=== PATIENT | female | born 1985 | race African-American/Black ===

== ENCOUNTER 2016-11-08 19:22 | Emergency (ER) | payer OTHER ==
[~2016-11-08] VITALS: Ht 160 cm; Wt 58.0 kg
[2016-11-08 19:23] VITALS: BP 128/65; PULSE 82; RESP 16; TEMP 99.2; O2SAT 100
--- NOTE | 2016-11-08 19:30 | PD ---
Physical Exam Date Seen by Provider: Nov 08, 2016 Time Seen by Provider: 19:29 Narrative 31 year old female presents to the emergency department for evaluation of a headache for 3 days, not responding to OTC medications. She reports feeling dizzy as well. No history of migraines. Patient awaiting bed placement. Data Data Last Documented VS Vital Signs Date Time Temp Pulse Resp B/P Pulse Ox O2 Delivery O2 Flow Rate FiO2 11/08/16 19:23 99.2 82 16 128/65 100 Room Air MDM Supervised Visit with BERTA: No Scripts No Active Prescriptions or Reported Meds Fatoumata Basurto Nov 08, 2016 19:29
[2016-11-08] MEDS ORDERED: SODIUM CHLOR 0.9% 1000 ML INJ 1,000 ML IV ONE (20:14)
--- NOTE | 2016-11-08 20:14 | PD ---
HPI Chief Complaint: Headache Time Seen by Provider: 20:14 Travel History International Travel<30 days: No Contact w/Intl Traveler<30days: No Traveled to known affect area: No History of Present Illness HPI 31-year-old female presents emergency Department with complaint of a headache 3 days. She does not have history of headaches. Location is frontal and posterior to the back of the neck. Rates her headache 10/10. As an aching pain. Increase and decrease in intensity but has not completely subsided in the last 3 days. Reports nausea without vomiting. Denies fever. Denies focal deficits or weakness. Denies change in vision. Denies photophobia or phonophobia. Reports dizziness that is worse with walking and standing. Denies illicit drug use or EtOH. Has been taking ibuprofen and Aleve with no relief of headache. Family history of headaches. Hasn't established primary care provider but does not know his name. Allergies to crabs. Denies significant past medical history. No other modifying factors or associated signs and symptoms. PFSH Past Medical History Anemia: Yes Diminished Hearing: No Immunizations Current: No Tetanus Vaccination: < 5 Years Influenza Vaccination: No ?: Not LMP: 11/04/16 : 3 Para: 3 Ectopic : No Ovarian Cysts: Yes Tubal Ligation: Yes Past Surgical History Section: Yes (x3) Gynecologic Surgery: Yes (CYST REMOVAL) Hysterectomy: No Social History Alcohol Use: No (occassionally ) Tobacco Use: No Substance Use: No Allergies-Medications (Allergen,Severity, Reaction): Coded Allergies: Crab (Verified Allergy, Severe, 11/08/16) Reported Meds & Prescriptions Reported Meds & Active Scripts Active No Active Prescriptions or Reported Medications Review of Systems Except as stated in HPI: all other systems reviewed are Neg Physical Exam Narrative GENERAL: Well-nourished, well-developed patient, in no acute distress; sitting in a well lit room SKIN: Warm and dry. HEAD: Atraumatic. Normocephalic. No facial droop noted. Tongue midline. EYES: Pupils equal and round at 3 mm with brisk reaction. No scleral icterus. No injection or drainage. PERRLA. EOMI. ENT: Mucosa pink and moist. Airway patent. NECK: Trachea midline. No lymphadenopathy. CARDIOVASCULAR: Regular rate and rhythm. No murmur appreciated. RESPIRATORY: No accessory muscle use. Clear to auscultation. Breath sounds equal bilaterally. GASTROINTESTINAL: Abdomen soft, non-tender, nondistended. Hepatic and splenic margins not palpable. Bowel sounds are active 4 quadrants. MUSCULOSKELETAL: No obvious deformities. No clubbing. No cyanosis. No edema. NEUROLOGICAL: Awake and alert. Oriented 3. No obvious cranial nerve deficits. Motor grossly within normal limits. Normal speech. No ataxia. No mid -line drift. Moves all extremities. 5/5 strength to all extremities. PSYCHIATRIC: Appropriate mood and affect; insight and judgment normal. Data Data Last Documented VS Vital Signs Date Time Temp Pulse Resp B/P Pulse Ox O2 Delivery O2 Flow Rate FiO2 11/08/16 22:48 98.5 78 16 131/55 99 11/08/16 20:31 Room Air Orders Complete Blood Count With Diff (11/08/16 20:14) Basic Metabolic Panel (Bmp) (11/08/16 20:14) Ct Brain W/O Iv Contrast(Rout) (11/08/16 20:14) Sodium Chloride 0.9% Flush (Ns Flush) (11/08/16 20:15) Ondansetron Inj (Zofran Inj) (11/08/16 20:15) Diphenhydramine Inj (Benadryl Inj) (11/08/16 20:15) Sodium Chlor 0.9% 1000 Ml Inj (Ns 1000 M (11/08/16 20:14) Ed Urine Pregnancytest Poc (11/08/16 20:14) Ecg Monitoring (11/08/16 20:21) Iv Access Insert/Monitor (11/08/16 20:21) Oximetry (11/08/16 20:21) Ketorolac Inj (Toradol Inj) (11/08/16 21:15) Labs Laboratory Tests Test 11/08/16 20:30 White Blood Count 5.6 TH/MM3 Red Blood Count 4.16 MIL/MM3 Hemoglobin 8.7 GM/DL Hematocrit 26.4 % Mean Corpuscular Volume 63.4 FL Mean Corpuscular Hemoglobin 20.9 PG Mean Corpuscular Hemoglobin 32.9 % Concent Red Cell Distribution Width 19.6 % Platelet Count 233 TH/MM3 Mean Platelet Volume 9.9 FL Neutrophils (%) (Auto) 68.2 % Lymphocytes (%) (Auto) 22.0 % Monocytes (%) (Auto) 6.5 % Eosinophils (%) (Auto) 2.2 % Basophils (%) (Auto) 1.1 % Neutrophils # (Auto) 3.8 TH/MM3 Lymphocytes # (Auto) 1.2 TH/MM3 Monocytes # (Auto) 0.4 TH/MM3 Eosinophils # (Auto) 0.1 TH/MM3 Basophils # (Auto) 0.1 TH/MM3 CBC Comment AUTO DIFF Differential Comment AUTO DIFF CONFIRMED Platelet Estimate NORMAL Platelet Morphology Comment NORMAL Sodium Level 139 MEQ/L Potassium Level 3.3 MEQ/L Chloride Level 107 MEQ/L Carbon Dioxide Level 25.7 MEQ/L Anion Gap 6 MEQ/L Blood Urea Nitrogen 7 MG/DL Creatinine 0.79 MG/DL Estimat Glomerular Filtration 101 ML/MIN Rate Random Glucose 101 MG/DL Calcium Level 8.5 MG/DL [facility] Medical Decision Making Medical Screen Exam Complete: Yes Emergency Medical Condition: Yes Medical Record Reviewed: Yes Differential Diagnosis Migraine headache, tension headache, generalized headache, intracranial mass Narrative Course 31-year-old female with headache 2 days. Denies headache. Neuro exam unremarkable. Patient does not appear painful. She is sitting in a well lit room. Labs ordered. CT ordered. Benadryl and Zofran ordered. 2100: On reexamination the patient reports her headache is now a 4/10. CT is pending. The patient is reported off to Dr. Quintero at this time. See his note for final disposition. Scripts No Active Prescriptions or Reported Meds Candie Barnes Nov 08, 2016 20:14
[2016-11-08] MEDS ORDERED: diphenhydrAMINE HCL 50 MG/ML VIAL IVP ONE (20:15)
[2016-11-08] MEDS ORDERED: SODIUM CHLORIDE 0.9% FLUSH 10 ML FLUSH IVF PRN (20:15)
[2016-11-08] MEDS ORDERED: ONDANSETRON HCL 4 MG/2 ML VIAL IVP ONE (20:15)
[2016-11-08 20:31] VITALS: RESP 16; O2SAT 100
[2016-11-08 20:40] LABS: AUTOMATED NEUTROPHIL # 3.8 TH/MM3 (1.8-7.7); BASOPHIL # 0.1 TH/MM3 (0-0.2); BASOPHIL % 1.1 % (0.0-2.0); EOSINOPHIL # 0.1 TH/MM3 (0-0.4); EOSINOPHIL % 2.2 % (0.0-4.0); HEMATOCRIT 26.4 % (35.0-46.0); LYMPHOCYTE # 1.2 TH/MM3 (1.0-4.8); MEAN CELL VOLUME 63.4 FL (80.0-100.0); MEAN CORPUSCULAR HEMOGLOBIN 20.9 PG (27.0-34.0); MEAN CORPUSCULAR HGB CONC 32.9 % (32.0-36.0); MONO % 6.5 % (0.0-8.0); NEUT % 68.2 % (16.0-70.0); PLATELET COUNT 233 TH/MM3 (150-450); RED BLOOD COUNT 4.16 MIL/MM3 (4.00-5.30); RED CELL DISTRIBUTION WIDTH 19.6 % (11.6-17.2); WHITE BLOOD COUNT 5.6 TH/MM3 (4.0-11.0)
[2016-11-08 20:44] LABS: HEMO FLAGS AUTO DIFF
[2016-11-08] MEDS ORDERED: KETOROLAC TROMETHAMINE 30 MG/ML (IVP) VIAL IV PUSH ONE (21:15)
[2016-11-08 21:25] LABS: BICARBONATE 25.7 MEQ/L (21.0-32.0); POTASSIUM 3.3 MEQ/L (3.5-5.1)
--- NOTE | 2016-11-08 21:26 | RADRPT ---
EXAM DATE/TIME: 11/08/2016 20:55 [facility] COMPARISON: No previous studies available for comparison. INDICATIONS : Headache. RADIATION DOSE: 42.25 CTDIvol (mGy) MEDICAL HISTORY : None SURGICAL HISTORY : None. ENCOUNTER: Initial ACUITY: 3 days PAIN SCALE: 7/10 LOCATION: cranial TECHNIQUE: Multiple contiguous axial images were obtained of the head. Using automated exposure control and adj ustment of the mA and/or kV according to patient size, radiation dose was kept as low as reasonably a chievable to obtain optimal diagnostic quality images. FINDINGS: CEREBRUM: The ventricles are normal for age. No evidence of midline shift, mass lesion, hemorrhage or acute in farction. No extra-axial fluid collections are seen. POSTERIOR FOSSA: The cerebellum and brainstem are intact. The 4th ventricle is midline. The cerebellopontine angle i s unremarkable. EXTRACRANIAL: The visualized portion of the orbits is intact. SKULL: The calvaria is intact. No evidence of skull fracture. CONCLUSION: Normal examination. Seth Avendano MD on November 08, 2016 at 21:23 Board Certified Radiologist. This report was verified electronically.
[2016-11-08 22:29] LABS: PLATELET ESTIMATE SMEAR NORMAL (NORMAL); PLATELET MORPHOLOGY NORMAL (NORMAL); SCAN/DIFF AUTO DIFF CONFIRMED
--- NOTE | 2016-11-08 22:38 | PD ---
Data Data Last Documented VS Vital Signs Date Time Temp Pulse Resp B/P Pulse Ox O2 Delivery O2 Flow Rate FiO2 11/08/16 20:31 16 100 Room Air 11/08/16 19:23 99.2 82 128/65 Orders Complete Blood Count With Diff (11/08/16 20:14) Basic Metabolic Panel (Bmp) (11/08/16 20:14) Ct Brain W/O Iv Contrast(Rout) (11/08/16 20:14) Sodium Chloride 0.9% Flush (Ns Flush) (11/08/16 20:15) Ondansetron Inj (Zofran Inj) (11/08/16 20:15) Diphenhydramine Inj (Benadryl Inj) (11/08/16 20:15) Sodium Chlor 0.9% 1000 Ml Inj (Ns 1000 M (11/08/16 20:14) Ed Urine Pregnancytest Poc (11/08/16 20:14) Ecg Monitoring (11/08/16 20:21) Iv Access Insert/Monitor (11/08/16 20:21) Oximetry (11/08/16 20:21) Ketorolac Inj (Toradol Inj) (11/08/16 21:15) Labs Laboratory Tests Test 11/08/16 20:30 White Blood Count 5.6 TH/MM3 Red Blood Count 4.16 MIL/MM3 Hemoglobin 8.7 GM/DL Hematocrit 26.4 % Mean Corpuscular Volume 63.4 FL Mean Corpuscular Hemoglobin 20.9 PG Mean Corpuscular Hemoglobin 32.9 % Concent Red Cell Distribution Width 19.6 % Platelet Count 233 TH/MM3 Mean Platelet Volume 9.9 FL Neutrophils (%) (Auto) 68.2 % Lymphocytes (%) (Auto) 22.0 % Monocytes (%) (Auto) 6.5 % Eosinophils (%) (Auto) 2.2 % Basophils (%) (Auto) 1.1 % Neutrophils # (Auto) 3.8 TH/MM3 Lymphocytes # (Auto) 1.2 TH/MM3 Monocytes # (Auto) 0.4 TH/MM3 Eosinophils # (Auto) 0.1 TH/MM3 Basophils # (Auto) 0.1 TH/MM3 CBC Comment AUTO DIFF Differential Comment AUTO DIFF CONFIRMED Platelet Estimate NORMAL Platelet Morphology Comment NORMAL Sodium Level 139 MEQ/L Potassium Level 3.3 MEQ/L Chloride Level 107 MEQ/L Carbon Dioxide Level 25.7 MEQ/L Anion Gap 6 MEQ/L Blood Urea Nitrogen 7 MG/DL Creatinine 0.79 MG/DL Estimat Glomerular Filtration 101 ML/MIN Rate Random Glucose 101 MG/DL Calcium Level 8.5 MG/DL MDM Supervised Visit with BERTA: Yes Narrative Course I, Dr. Quintero, have reviewed the advance practice practitioner's documentation and am in agreement, met with the patient face to face, made the diagnosis, and the medical decision making was done by me. See her note for further details. Briefly this is a 31-year-old female who is here for evaluation of headaches for the last 3 weeks. Headaches have been frontal, intermittent. On arrival the patient looks very comfortable. She is afebrile. There is no nuchal rigidity. No motor deficits on exam. CBC is remarkable for hemoglobin of 8.7, hematocrit 26.4. The patient has been anemic in the past and is currently on her menstrual period. BMP is markable for potassium 3.3. Urine is negative. CT head: Normal examination. Patient was given a liter of normal saline IV, IV Zofran, IV Benadryl, and IV Toradol, and on reassessment she is sleeping comfortably. She states she is feeling a lot better. She was made aware of all findings. I do not believe she is suffering from a subarachnoid hemorrhage, meningitis, or encephalitis. I believe she is stable for discharge home with outpatient follow-up with her primary care physician this week. She was informed on when to return to the emergency department. She verbalizes understanding and agreement with plan. Diagnosis Primary Impression: Cephalgia Qualified Code: R51 - Nonintractable episodic headache, unspecified headache type Additional Impression: Anemia Qualified Code: D64.9 - Anemia, unspecified type Referrals: Primary Care Physician 3 days Additional Instruction: Follow-up with your primary care physician this week. Return to the emergency department for worsening symptoms or any other concerns. Scripts No Active Prescriptions or Reported Meds Disposition: 01 DISCHARGE HOME Condition: Stable Júnior Quintero MD Nov 08, 2016 22:38
[2016-11-08 22:48] VITALS: BP 131/55; TEMP 98.5
== END 2016-11-08 22:53 | disposition home or self-care (01) ==
LOC: NEPD 19:22
DX: R51 Headache (principal); D64.9 Anemia, unspecified
CPT/HCPCS: 70450; 80048; 84703; 85025; 96361; 96374; 96375; 99284; J1200; J1885; J2405; J7030

== ENCOUNTER 2016-12-03 04:58 | Emergency (ER) | payer OTHER ==
[~2016-12-03] VITALS: Ht 160 cm; Wt 57.0 kg
[2016-12-03 05:02] VITALS: BP 125/75; PULSE 92; RESP 18; TEMP 99; O2SAT 99
[2016-12-03] MEDS ORDERED: SODIUM CHLOR 0.9% 1000 ML INJ 1,000 ML IV ONE (05:15)
[2016-12-03] MEDS ORDERED: ONDANSETRON HCL 4 MG/2 ML VIAL IV ONE (05:15)
[2016-12-03] MEDS ORDERED: KETOROLAC TROMETHAMINE 30 MG/ML (IVP) VIAL IV PUSH ONE (05:15)
[2016-12-03 05:44] LABS: AUTOMATED NEUTROPHIL # 2.6 TH/MM3 (1.8-7.7); EOSINOPHIL # 0.1 TH/MM3 (0-0.4); EOSINOPHIL % 2.3 % (0.0-4.0); HEMATOCRIT 27.1 % (35.0-46.0); LYMPH % 29.3 % (9.0-44.0); LYMPHOCYTE # 1.3 TH/MM3 (1.0-4.8); MEAN CELL VOLUME 63.5 FL (80.0-100.0); MEAN CORPUSCULAR HEMOGLOBIN 20.4 PG (27.0-34.0); MEAN CORPUSCULAR HGB CONC 32.2 % (32.0-36.0); MONO % 9.9 % (0.0-8.0); NEUT % 57.5 % (16.0-70.0); PLATELET COUNT 277 TH/MM3 (150-450); RED BLOOD COUNT 4.27 MIL/MM3 (4.00-5.30); RED CELL DISTRIBUTION WIDTH 19.6 % (11.6-17.2); WHITE BLOOD COUNT 4.6 TH/MM3 (4.0-11.0)
[2016-12-03 05:50] LABS: HEMO FLAGS AUTO DIFF
[2016-12-03 06:15] LABS: ALT (GPT) 37 U/L (10-53); ANION GAP 7 MEQ/L (5-15); AST (GOT) 30 U/L (15-37); BICARBONATE 25.2 MEQ/L (21.0-32.0); BLOOD UREA NITROGEN 9 MG/DL (7-18); CHLORIDE 109 MEQ/L (98-107); GLOMERULAR FILTRATION RATE 109 ML/MIN (>89); POTASSIUM 3.5 MEQ/L (3.5-5.1); SODIUM (NA) 141 MEQ/L (136-145)
[2016-12-03 06:18] LABS: ALKALINE PHOSPHATASE 54 U/L (45-117); TOTAL BILIRUBIN ADULT 0.3 MG/DL (0.2-1.0)
--- NOTE | 2016-12-03 06:18 | PD ---
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 The patient reports a history of menorrhagia and dysmenorrhea. She reports that she also has a history of anemia. She denies ever seeing a bleaching supervisor regarding this. She has asked her primary care doctor on multiple occasions, Dr. Garcias for referral , however he has not remembered to do one according to her. She does report having a history of ovarian cyst she did have one ovarian cyst resected. She reports that she's had difficulty with her menstrual cycles since she first demonstrated at 9 years of age. She reports that the cramping causes nausea. She reports that she's had vomiting 2 this cycle. She denies ever having been on oral contraceptives in the past to light and her menstrual cycles. The patient denies any recent fevers, cough, congestion, neck pain, lightheaded sensation, chest pain, shortness of breath, diarrhea, urinary symptoms, or neurologic symptoms. PFS Past Medical History Narrative Medical The patient's past medical history is significant for dysmenorrhea, menorrhagia , ovarian cyst, anemia. Anemia: Yes Diminished Hearing: No Immunizations Current: No Tetanus Vaccination: Unknown Influenza Vaccination: No ?: Not LMP: CURRENT : 3 Para: 3 Ectopic : No Ovarian Cysts: Yes Tubal Ligation: Yes Past Surgical History Narrative Surgical The patient's past surgical history is significant for an ovarian cyst removal, bilateral tubal ligation, 3. Section: Yes (x3) Gynecologic Surgery: Yes (CYST REMOVAL) Hysterectomy: No Social History Alcohol Use: No (occassionally ) Tobacco Use: No Substance Use: No Allergies-Medications (Allergen,Severity, Reaction): Coded Allergies: Crab (Verified Allergy, Severe, 12/03/16) Reported Meds & Prescriptions Reported Meds & Active Scripts Active No Active Prescriptions or Reported Medications Review of Systems Except as stated in HPI: all other systems reviewed are Neg General / Constitutional: No: Fever Eyes: No: Visual changes HENT: No: Headaches Cardiovascular: No: Chest Pain or Discomfort Respiratory: No: Shortness of Breath Gastrointestinal: Positive: Nausea, Vomiting, Abdominal Pain, No: Diarrhea, Changes in Bowel Habits, Indigestion, Loss of Appetite Genitourinary: Positive: Pelvic Pain, Dysmenorrhea, Menorrhagia, Vaginal Bleeding, No: Dysuria Musculoskeletal: No: Pain Skin: No Rash Neurologic: No: Weakness Psychiatric: No: Depression Endocrine: No: Polydipsia Hematologic/Lymphatic: No: Easy Bruising Physical Exam Narrative General: The patient is a well-developed well-nourished female in no acute distress. Head and Neck exam: Head is normocephalic atraumatic. Eyes: EOMI, pupils are equal round and reactive to light. Nose: Midline septum with pink mucous membranes Mouth: Dentition unremarkable. Moist mucus membranes. Posterior oropharynx is not erythematous. No tonsillar hypertrophy. Uvula midline. Airway patent. Neck: No palpable lymphadenopathy. No nuchal rigidity. No thyromegaly. Cardiovascular: Regular rate and rhythm without murmurs, gallops, or rubs. Lungs: Clear to auscultation bilaterally. No wheezes, rhonchi, or rales. Abdomen: Soft, with reported suprapubic discomfort on palpation, no other tenderness on palpation of the other quadrants of the abdomen. No guarding, rebound, or rigidity. No tenderness on palpation of McBurney's point. Normal bowel sounds are audible. Negative Brockway sign. Extremities: No clubbing, cyanosis, or edema. No calf tenderness on palpation. Back: No costovertebral angle tenderness to palpation. Neurologic Exam: Grossly nonfocal. Skin Exam: No rash noted. Intact skin that is warm and dry. Data Data Last Documented VS Vital Signs Date Time Temp Pulse Resp B/P Pulse Ox O2 Delivery O2 Flow Rate FiO2 12/03/16 07:08 68 18 92/52 100 Room Air 12/03/16 05:02 99.0 Orders Complete Blood Count With Diff (12/03/16 05:15) Comprehensive Metabolic Panel (12/03/16 05:15) Lipase (12/03/16 05:15) Urinalysis - C+S If Indicated (12/03/16 05:15) Iv Access Insert/Monitor (12/03/16 05:15) Ecg Monitoring (12/03/16 05:15) Oximetry (12/03/16 05:15) Sodium Chlor 0.9% 1000 Ml Inj (Ns 1000 M (12/03/16 05:15) Ondansetron Inj (Zofran Inj) (12/03/16 05:15) Ketorolac Inj (Toradol Inj) (12/03/16 05:15) Ed Urine Pregnancytest Poc (12/03/16 06:03) Labs Laboratory Tests Test 12/03/16 05:30 White Blood Count 4.6 TH/MM3 Red Blood Count 4.27 MIL/MM3 Hemoglobin 8.7 GM/DL Hematocrit 27.1 % Mean Corpuscular Volume 63.5 FL Mean Corpuscular Hemoglobin 20.4 PG Mean Corpuscular Hemoglobin 32.2 % Concent Red Cell Distribution Width 19.6 % Platelet Count 277 TH/MM3 Mean Platelet Volume 9.6 FL Neutrophils (%) (Auto) 57.5 % Lymphocytes (%) (Auto) 29.3 % Monocytes (%) (Auto) 9.9 % Eosinophils (%) (Auto) 2.3 % Basophils (%) (Auto) 1.0 % Neutrophils # (Auto) 2.6 TH/MM3 Lymphocytes # (Auto) 1.3 TH/MM3 Monocytes # (Auto) 0.5 TH/MM3 Eosinophils # (Auto) 0.1 TH/MM3 Basophils # (Auto) 0.0 TH/MM3 CBC Comment AUTO DIFF Differential Comment AUTO DIFF CONFIRMED Platelet Estimate NORMAL Platelet Morphology Comment ENLARGED Ovalocytes 1+ Acanthocytes OCC Sodium Level 141 MEQ/L Potassium Level 3.5 MEQ/L Chloride Level 109 MEQ/L Carbon Dioxide Level 25.2 MEQ/L Anion Gap 7 MEQ/L Blood Urea Nitrogen 9 MG/DL Creatinine 0.74 MG/DL Estimat Glomerular Filtration 109 ML/MIN Rate Random Glucose 91 MG/DL Calcium Level 8.6 MG/DL Total Bilirubin 0.3 MG/DL Aspartate Amino Transf 30 U/L (AST/SGOT) Alanine Aminotransferase 37 U/L (ALT/SGPT) Alkaline Phosphatase 54 U/L Total Protein 6.9 GM/DL Albumin 3.9 GM/DL Lipase 75 U/L MDM Medical Decision Making Medical Screen Exam Complete: Yes Emergency Medical Condition: Yes Medical Record Reviewed: Yes Interpretation(s) Vital Signs Date Time Temp Pulse Resp B/P Pulse Ox O2 Delivery O2 Flow Rate FiO2 12/03/16 07:08 68 18 92/52 100 Room Air 12/03/16 05:02 99.0 92 18 125/75 99 12/03/16 05:02 16 Differential Diagnosis Urinary tract infection, versus dysmenorrhea, versus symptomatic anemia Narrative Course During the course of the patients emergency department visit, the patients history, examination, and differential diagnosis were reviewed with the patient. The patient had IV access obtained and blood work sent for analysis. The patient states on a track watchman with oximetry and blood pressure monitoring. The patient was initially provided normal saline 1 L IV fluid bolus, Toradol 15 mg IV, Zofran 4 mg IV. The patients laboratory studies were reviewed and remarkable for a white count of 4.6, hemoglobin 8.7 which is stable compared to previously, platelets 277 with 9.9 monocytes, CMP is remarkable for chloride of 109 the lipase 75. Bedside test is negative. The patient was instructed regarding the importance of following up with a bleaching supervisor. We did discuss possible options for treatment of menorrhagia and dysmenorrhea including endometrial ablation, versus oral contraceptives to lighten her menstrual cycle. She will discuss these options further with the bleaching supervisor in follow-up. She is given the name of the bleaching supervisor on-call, Dr. Birmingham for follow-up. The patient is resting comfortably and feels better, is alert and in no distress. The patients results and examination findings were discussed with the patient. The repeat examination is unremarkable and benign. The history, exam, diagnostic testing, and current condition do not suggest any significant pathology to warrant further testing, continued ED treatment, admission, or surgical evaluation at this point. The vital signs have been stable. The patient does not have uncontrollable pain, intractable vomiting, or other significant symptoms. The patient's condition is stable and appropriate for discharge. The patient will pursue further outpatient evaluation with a primary care physician or other designated or consulting physician as indicated in the discharge instructions. The patient expressed understanding and was agreeable with this plan. Diagnosis Primary Impression: Dysmenorrhea Additional Impressions: Menorrhagia Qualified Code: N92.0 - Menorrhagia with regular cycle Anemia Qualified Code: D64.9 - Anemia, unspecified type Referrals: Janice Birmingham MD 2 days Patient Instructions: Dysmenorrhea (ED), General Instructions, Menorrhagia (ED) Med/Other Pt SpecificInfo: Prescription(s) given Scripts Ondansetron Odt (Zofran Odt)4 Mg Tab4 Mg SL Q6HR PRN (Nausea/Vomiting) #7 TAB Ref 0 Prov:Cheryl Bonilla MD 12/03/[address] (Naproxen EC)500 Mg [id number] Mg PO BID PRN (PAIN GREATER THAN 5) # 10 TAB Ref 0 Prov:Cheryl Bonilla MD 12/03/16 Disposition: 01 DISCHARGE HOME Condition: Stable Cheryl Bonilla MD December 03, 2016 06:18
[2016-12-03 06:50] LABS: ACANTHOCYTES OCC (NORMAL); OVALOCYTES 1+ (NORMAL); PLATELET ESTIMATE SMEAR NORMAL (NORMAL); PLATELET MORPHOLOGY ENLARGED (NORMAL); SCAN/DIFF AUTO DIFF CONFIRMED
[2016-12-03 07:08] VITALS: BP 92/52; PULSE 68; RESP 18; O2SAT 100
[2016-12-03] MEDS ORDERED: ZOFR4TAB3 SL (07:57)
[2016-12-03] MEDS ORDERED: NAPR1TAB34 PO (07:57)
[2016-12-03 08:03] LABS: BACTERIA, URINE RARE /hpf; BLOOD, URINE LARGE (NEG); COMMENT (UR) CULTURE INDICATED; CULTURE IF INDICATED CULTURE INDICATED; GLUCOSE,URINE NEG (NEG); KETONE, URINE TRACE mg/dL (NEG); MUCUS URINE MANY /lpf (OCC); NITRITE,URINE NEG (NEG); URINE COLOR RED (YELLW/STRAW)
== END 2016-12-03 08:14 | disposition home or self-care (01) ==
LOC: NEPE 04:58
DX: N94.6 Dysmenorrhea, unspecified (principal); N92.0 Excessive and frequent menstruation with regular cycle; D64.9 Anemia, unspecified; B96.89 Other specified bacterial agents as the cause of diseases classified elsewhere
CPT/HCPCS: 80053; 81001; 83690; 84703; 85025; 87086; 96374; 96375; 99283; J1885; J2405; J7030

== ENCOUNTER 2017-02-19 09:23 | Emergency (ER) | payer OTHER ==
[~2017-02-19] VITALS: Ht 160 cm; Wt 50.0 kg
[~2017-02-19 09:23] MED LIST: NAPR1TAB34 PO; ZOFR4TAB3 SL
[2017-02-19 09:39] VITALS: PULSE 70; RESP 28; TEMP 97.9; O2SAT 100
[2017-02-19] MEDS ORDERED: SODIUM CHLOR 0.9% 1000 ML INJ 1,000 ML IV SCH (10:03)
--- NOTE | 2017-02-19 10:06 | PD ---
HPI Chief Complaint: GI Complaint Time Seen by Provider: 10:00 Travel History International Travel<30 days: No Contact w/Intl Traveler<30days: No Traveled to known affect area: No History of Present Illness HPI Patient is a 31-year-old female presents emergency Department with pelvic pain nausea and vomiting and vaginal bleeding for the past few days. Patient states this happens every month during her period. 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 Denies any fevers. On arrival the patient appears quite uncomfortable. States symptoms are severe and had been rapidly worsening. States the pain is sharp in nature. History Past Medical History Medical History: Denies Significant Hx Tetanus Vaccination: Unknown LMP: 02/19/2017 : 3 Para: 3 Past Surgical History Narrative Surgical Family History Family History: Negative Social History Alcohol Use: No (occassionally ) Tobacco Use: No Allergies-Medications (Allergen,Severity, Reaction): Coded Allergies: Crab (Verified Allergy, Severe, 12/03/16) Reported Meds & Prescriptions Reported Meds & Active Scripts Active Zofran Odt (Ondansetron Odt) 4 Mg Tab 4 Mg SL Q6HR PRN Zofran Odt (Ondansetron Odt) 4 Mg Tab 4 Mg SL Q6HR PRN Naproxen EC (Naproxen) 500 Mg Tabdr 500 Mg PO BID PRN Review of Systems Except as stated in HPI: all other systems reviewed are Neg Physical Exam Narrative GENERAL: Well-developed well-nourished, writhing in pain. SKIN: Focused skin assessment warm/dry. HEAD: Atraumatic. Normocephalic. EYES: Pupils equal and round. No scleral icterus. No injection or drainage. ENT: No nasal bleeding or discharge. Mucous membranes pink and moist. NECK: Trachea midline. No JVD. CARDIOVASCULAR: Regular rate and rhythm. No murmur appreciated. RESPIRATORY: No accessory muscle use. Clear to auscultation. Breath sounds equal bilaterally. GASTROINTESTINAL: Abdomen soft, mildly tender throughout all 4 quadrants., nondistended. Hepatic and splenic margins not palpable. No rebound no percussive tenderness no CVA tenderness. GENITOURINARY: Exam was performed with female cook camp present at all times. Scant blood in the vaginal vault, no cervical motion tenderness, no bimanual tenderness, grossly normal external genitalia. No vaginal trauma seen. MUSCULOSKELETAL: No obvious deformities. No clubbing. No cyanosis. No edema. NEUROLOGICAL: Awake and alert. No obvious cranial nerve deficits. Motor grossly within normal limits. Normal speech. PSYCHIATRIC: Appropriate mood and affect; insight and judgment normal. Data Data Last Documented VS Vital Signs Date Time Temp Pulse Resp B/P Pulse Ox O2 Delivery O2 Flow Rate FiO2 02/19/17 14:30 83 18 93/64 100 02/19/17 11:30 Room Air 02/19/17 10:10 97.7 Orders Urinalysis - C+S If Indicated (02/19/17 09:58) Ed Urine Pregnancytest Poc (02/19/17 09:58) Complete Blood Count With Diff (02/19/17 10:03) Comprehensive Metabolic Panel (02/19/17 10:03) Lipase (02/19/17 10:03) Iv Access Insert/Monitor (02/19/17 10:03) Ecg Monitoring (02/19/17 10:03) Oximetry (02/19/17 10:03) Sodium Chlor 0.9% 1000 Ml Inj (Ns 1000 M (02/19/17 10:03) Sodium Chloride 0.9% Flush (Ns Flush) (02/19/17 10:15) Ketorolac Inj (Toradol Inj) (02/19/17 10:15) Ondansetron Inj (Zofran Inj) (02/19/17 10:15) Wet Prep Profile (02/19/17 10:06) Us Pelvis Comp W Doppler (02/19/17 ) Morphine Inj (Morphine Inj) (02/19/17 12:00) Promethazine Inj (Phenergan Inj) (02/19/17 12:00) Ct Abd/Pel W Iv Contrast(Rout) (02/19/17 ) Urine Culture (02/19/17 11:15) Iohexol 350 Inj (Omnipaque 350 Inj) (02/19/17 13:12) Labs Laboratory Tests Test 02/19/17 02/19/17 02/19/17 10:10 11:15 13:55 White Blood Count 5.9 TH/MM3 Red Blood Count 4.76 MIL/MM3 Hemoglobin 9.7 GM/DL Hematocrit 30.8 % Mean Corpuscular Volume 64.6 FL Mean Corpuscular Hemoglobin 20.4 PG Mean Corpuscular Hemoglobin 31.6 % Concent Red Cell Distribution Width 18.9 % Platelet Count 237 TH/MM3 Mean Platelet Volume 9.8 FL Neutrophils (%) (Auto) 63.0 % Lymphocytes (%) (Auto) 23.0 % Monocytes (%) (Auto) 10.8 % Eosinophils (%) (Auto) 1.5 % Basophils (%) (Auto) 1.7 % Neutrophils # (Auto) 3.7 TH/MM3 Lymphocytes # (Auto) 1.4 TH/MM3 Monocytes # (Auto) 0.6 TH/MM3 Eosinophils # (Auto) 0.1 TH/MM3 Basophils # (Auto) 0.1 TH/MM3 CBC Comment DIFF FINAL Differential Comment Sodium Level 144 MEQ/L Potassium Level 3.2 MEQ/L Chloride Level 111 MEQ/L Carbon Dioxide Level 23.0 MEQ/L Anion Gap 10 MEQ/L Blood Urea Nitrogen 10 MG/DL Creatinine 0.80 MG/DL Estimat Glomerular Filtration 100 ML/MIN Rate Random Glucose 90 MG/DL Calcium Level 8.9 MG/DL Total Bilirubin 0.2 MG/DL Aspartate Amino Transf 40 U/L (AST/SGOT) Alanine Aminotransferase 44 U/L (ALT/SGPT) Alkaline Phosphatase 52 U/L Total Protein 7.3 GM/DL Albumin 3.7 GM/DL Lipase 102 U/L Urine Color RED Urine Turbidity CLOUDY Urine pH 7.0 Urine Specific [place] 1.017 Urine Protein 300 mg/dL Urine Glucose (UA) NEG mg/dL Urine Ketones NEG mg/dL Urine Occult Blood LARGE Urine Nitrite NEG Urine Bilirubin NEG Urine Urobilinogen LESS THAN 2.0 MG/DL Urine Leukocyte Esterase TRACE Urine RBC /hpf Urine WBC 110 /hpf Urine Bacteria OCC /hpf Urine Mucus MANY /lpf Microscopic Urinalysis Comment CULTURE INDICATED Clue Cells (Wet Prep) PRESENT Vaginal Trichomonas (Wet Prep) NONE SEEN Vaginal Yeast (Wet Prep) NONE SEEN MDM Medical Decision Making Medical Screen Exam Complete: Yes Emergency Medical Condition: Yes Differential Diagnosis , ectopic , anemia, vaginal bleeding, dysfunctional uterine bleeding, premenstrual work disorder, acute appendicitis, ovarian torsion Narrative Course Patient roomed emergency department, given Toradol with no relief of pain. Then given morphine and Zofran and had complete reversal and on revisit is quite comfortable and in no distress at all. Patient has indications for CAT scan and ultrasound given her presentation: Last 24 hours Impressions Pelvis Ultrasound 02/19/17 0000 Signed Impressions: Service Date/Time: Sunday, February 19, 2017 10:16 - CONCLUSION: There is a prominent left-sided ovarian cyst. No surrounding free fluid. Some fluid in the lower endometrial canal. Endometrial stripe is normal at 10 mm. Right ovary is unremarkable. Melo Ryan MD Abdomen/Pelvis CT 02/19/17 0000 Signed Impressions: Service Date/Time: Sunday, February 19, 2017 13:04 - CONCLUSION: 1. Questionable wall thickening within the transverse colon could be colitis versus nondistention. 2. Left ovarian cyst measures 4.1 cm. Prominent endometrium. Followup pelvic sonogram recommended. Vernon Lujan MD Patient's labs do show moderate anemia normal white blood cell count, chemistry unremarkable, urine contaminated with vaginal specimen. Discussed with the patient need follow-up with an CLOUD ADMINISTRATOR, no obvious source of her pain is been isolated. She is much more comfortable at this time and She stable for discharge. Discussed return to ED criteria. Diagnosis Primary Impression: Pelvic pain in female Referrals: Siddhartha Abreu MD Med/Other Pt SpecificInfo: Prescription(s) given Scripts Ondansetron Odt (Zofran Odt)4 Mg Tab4 Mg SL Q6HR PRN (Nausea/Vomiting) #20 TAB Ref 0 Prov:Yoan Bales MD 02/19/17 Disposition: 01 DISCHARGE HOME Condition: Stable Yoan Bales MD Feb 19, 2017 10:06
[2017-02-19 10:10] VITALS: BP 135/66; PULSE 69; RESP 20; TEMP 97.7; O2SAT 99
[2017-02-19] MEDS ORDERED: KETOROLAC TROMETHAMINE 30 MG/ML (IVP) VIAL IVP ONE (10:15)
[2017-02-19] MEDS ORDERED: ONDANSETRON HCL 4 MG/2 ML VIAL IV PUSH ONE (10:15)
[2017-02-19] MEDS ORDERED: SODIUM CHLORIDE 0.9% FLUSH 10 ML FLUSH IV FLUSH PRN (10:15)
[2017-02-19 10:52] LABS: AUTOMATED NEUTROPHIL # 3.7 TH/MM3 (1.8-7.7); BASOPHIL # 0.1 TH/MM3 (0-0.2); BASOPHIL % 1.7 % (0.0-2.0); EOSINOPHIL # 0.1 TH/MM3 (0-0.4); EOSINOPHIL % 1.5 % (0.0-4.0); HEMATOCRIT 30.8 % (35.0-46.0); HEMO FLAGS DIFF FINAL; LYMPHOCYTE # 1.4 TH/MM3 (1.0-4.8); MEAN CELL VOLUME 64.6 FL (80.0-100.0); MEAN CORPUSCULAR HEMOGLOBIN 20.4 PG (27.0-34.0); MEAN CORPUSCULAR HGB CONC 31.6 % (32.0-36.0); MONO % 10.8 % (0.0-8.0); PLATELET COUNT 237 TH/MM3 (150-450); RED BLOOD COUNT 4.76 MIL/MM3 (4.00-5.30); RED CELL DISTRIBUTION WIDTH 18.9 % (11.6-17.2); WHITE BLOOD COUNT 5.9 TH/MM3 (4.0-11.0)
--- NOTE | 2017-02-19 11:19 | RADRPT ---
EXAM DATE/TIME: 02/19/2017 10:16 [facility] COMPARISON: No previous studies available for comparison. INDICATIONS : Abdominal pain, pelvic pain. MEDICAL HISTORY : Ovarian cysts. Anemia. SURGICAL HISTORY : section. Tubal ligation. Ovarian cyst removal. ENCOUNTER: Initial ACUITY: 1 day PAIN SCORE: 6/10 LOCATION: Bilateral pelvis MEASUREMENTS: UTERUS: 13.9 x 4.7 x 6.8 cm ENDOMETRIAL STRIPE: 10 mm RIGHT OVARY: 3.1 x 1.7 x 1.9 cm LEFT OVARY: 5.6 x 3.7 x 4.9 cm FINDINGS: Ultrasound of the pelvis was performed. The uterus is anteverted. There is some fluid in the lower endometrial cavity. The endometrial stripe is 10 mm superiorly. There is a large cyst within the left ovary measuring 4.6 x 3.3 x 4.2 cm. No significant free fluid is identified in the cul-de-sac. CONCLUSION: There is a prominent left-sided ovarian cyst. No surrounding free fluid. Some fluid in the lower endometrial canal. Endometrial stripe is normal at 10 mm. Right ovary is un remarkable. Melo Ryan MD on February 19, 2017 at 10:55 Board Certified Radiologist. This report was verified electronically.
[2017-02-19 11:20] LABS: ALT (GPT) 44 U/L (10-53); ANION GAP 10 MEQ/L (5-15); AST (GOT) 40 U/L (15-37); BLOOD UREA NITROGEN 10 MG/DL (7-18); CHLORIDE 111 MEQ/L (98-107); GLOMERULAR FILTRATION RATE 100 ML/MIN (>89); POTASSIUM 3.2 MEQ/L (3.5-5.1); SODIUM (NA) 144 MEQ/L (136-145)
[2017-02-19 11:23] LABS: ALKALINE PHOSPHATASE 52 U/L (45-117); TOTAL BILIRUBIN ADULT 0.2 MG/DL (0.2-1.0)
[2017-02-19 11:30] VITALS: BP 109/75; PULSE 54; RESP 17; O2SAT 99
[2017-02-19] MEDS ORDERED: PROMETHAZINE INJ 25 MG/ML VIAL IM ONE (12:00)
[2017-02-19] MEDS ORDERED: MORPHINE SULFATE 8 MG/ML INJ IV PUSH ONE (12:00)
[2017-02-19 12:15] LABS: BACTERIA, URINE OCC /hpf; BLOOD, URINE LARGE (NEG); COMMENT (UR) CULTURE INDICATED; CULTURE IF INDICATED CULTURE INDICATED; GLUCOSE,URINE NEG (NEG); KETONE, URINE NEG (NEG); MUCUS URINE MANY /lpf (OCC); NITRITE,URINE NEG (NEG)
[2017-02-19 12:16] LABS: URINE COLOR RED (YELLW/STRAW)
[2017-02-19 13:00] VITALS: BP 96/53; PULSE 66; RESP 16; O2SAT 99
[2017-02-19] MEDS ORDERED: IOHEXOL 350 MG/ML 10 ML VIAL (for RAD DIAG) IV ONE (13:12)
--- NOTE | 2017-02-19 13:42 | RADRPT ---
EXAM DATE/TIME: 02/19/2017 13:04 [facility] COMPARISON: No previous studies available for comparison. INDICATIONS : Nausea, lower abdominal pain and vomiting. IV CONTRAST: 95 cc Omnipaque 350 (iohexol) IV ORAL CONTRAST: No oral contrast ingested. RADIATION DOSE: 9.96 CTDIvol (mGy) MEDICAL HISTORY : None SURGICAL HISTORY : Tubal ligation. ENCOUNTER: Initial ACUITY: 1 day PAIN SCALE: 5/10 LOCATION: Bilateral lower quadrant TECHNIQUE: Volumetric scanning of the abdomen and pelvis was performed. Using automated exposure control and ad justment of the mA and/or kV according to patient size, radiation dose was kept as low as reasonably achievable to obtain optimal diagnostic quality images. DICOM format image data is available electro nically for review and comparison. FINDINGS: LOWER LUNGS: The visualized lower lungs are clear. LIVER: Homogeneous density without lesion. There is no dilation of the biliary tree. No calcified gallston es. SPLEEN: Normal size without lesion. PANCREAS: Within normal limits. KIDNEYS: Normal in size and shape. There is no mass, stone or hydronephrosis. Bilateral renal densities likel y cysts. ADRENAL GLANDS: Within normal limits. VASCULAR: There is no aortic aneurysm. BOWEL/MESENTERY: Questionable wall thickening of the transverse colon. No bowel obstruction.. There is no free intrap eritoneal air or fluid. Normal appendix. ABDOMINAL WALL: Within normal limits. RETROPERITONEUM: There is no lymphadenopathy. BLADDER: No wall thickening or mass. REPRODUCTIVE: Prominent endometrium. Left adnexal cyst measures 4.1 cm.. INGUINAL: There is no lymphadenopathy or hernia. MUSCULOSKELETAL: Within normal limits for patient age. CONCLUSION: 1. Questionable wall thickening within the transverse colon could be colitis versus nondistention. 2. Left ovarian cyst measures 4.1 cm. Prominent endometrium. Followup pelvic sonogram recommended. Vernon Lujan MD on February 19, 2017 at 13:36 Board Certified Radiologist. This report was verified electronically.
[2017-02-19] MEDS ORDERED: ZOFR4TAB3 SL (14:03)
[2017-02-19 14:30] VITALS: BP 93/64
== END 2017-02-19 14:47 | disposition home or self-care (01) ==
LOC: NEPD 09:23
DX: N83.202 Unspecified ovarian cyst, left side (principal); R10.2 Pelvic and perineal pain; R11.2 Nausea with vomiting, unspecified; D64.9 Anemia, unspecified; Z79.899 Other long term (current) drug therapy
CPT/HCPCS: 74177; 76856; 80053; 81001; 83690; 84703; 85025; 87077; 87086; 87186; 87210; 93975; 96372; 96374; 96375; 99285; J1885; J2270; J2405; J2550; J7030; Q9967

== ENCOUNTER 2017-05-12 12:44 | Emergency (ER) | payer OTHER ==
[~2017-05-12] VITALS: Ht 167.6 cm; Wt 55.0 kg
[2017-05-12 12:48] VITALS: BP 121/57; PULSE 81; RESP 24; TEMP 98.4; O2SAT 98
[2017-05-13] MEDS ORDERED: BACT800T5 PO (10:27)
[2017-05-13] MEDS ORDERED: TYLE325T PO (10:27)
[2017-05-13] MEDS ORDERED: ZOFR4TAB3 SL (22:21)
[2017-05-13] MEDS ORDERED: DICL75TA PO (22:21)
== END 2017-05-12 15:00 | disposition left against medical advice (07) ==
LOC: NEDAMB 12:44
DX: Z53.21 Procedure and treatment not carried out due to patient leaving prior to being seen by health care provider (principal)
CPT/HCPCS: 99281

== ENCOUNTER 2017-05-13 07:56 | Emergency (ER) | payer OTHER ==
[~2017-05-13] VITALS: Ht 170.2 cm; Wt 70.0 kg
[2017-05-13 07:59] VITALS: BP 120/64; PULSE 74; RESP 26; TEMP 98; O2SAT 99
[2017-05-13 08:10] VITALS: O2SAT 100
--- NOTE | 2017-05-13 08:13 | PD ---
HPI Chief Complaint: Abdominal Pain Time Seen by Provider: 08:04 Travel History International Travel<30 days: No Contact w/Intl Traveler<30days: No Traveled to known affect area: No History of Present Illness HPI 31yo F with no significant PMH presents to the ED with c/o abdominal pain, nausea, vomiting for 2 days. States her menstrual period started 2 days ago and pain is cramping, constant and generalized. Pt points to the entire abdomen when asked where the pain is. Pt is hyperventilating and states she did not take anything for pain at home. Pt comes frequently for this and last time she was evaluated here was 02/2017 and had pelvic US that showed left ovarian cyst. 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 PFS Past Medical History Anemia: Yes Diminished Hearing: No Immunizations Current: No ?: Unknown : 3 Para: 3 Ectopic : No Ovarian Cysts: Yes Tubal Ligation: Yes Past Surgical History Section: Yes (x3) Gynecologic Surgery: Yes (CYST REMOVAL) Hysterectomy: No Social History Alcohol Use: No (occassionally ) Tobacco Use: No Substance Use: No Allergies-Medications (Allergen,Severity, Reaction): Coded Allergies: crab (Unverified Allergy, Severe, 05/13/17) Reported Meds & Prescriptions Reported Meds & Active Scripts Active Zofran Odt (Ondansetron Odt) 4 Mg Tab 4 Mg SL Q6HR PRN Zofran Odt (Ondansetron Odt) 4 Mg Tab 4 Mg SL Q6HR PRN Review of Systems Except as stated in HPI: all other systems reviewed are Neg Physical Exam Narrative GENERAL: 31yo F in moderate distress. SKIN: Focused skin assessment warm/dry. HEAD: Atraumatic. Normocephalic. CARDIOVASCULAR: Regular rate and rhythm. No murmur appreciated. RESPIRATORY: No accessory muscle use. Clear to auscultation. Breath sounds equal bilaterally. GASTROINTESTINAL: Abdomen soft, nondistended. Diffuse ttp. No rebound tenderness or guarding. MUSCULOSKELETAL: No obvious deformities. No clubbing. No cyanosis. No edema. NEUROLOGICAL: Awake and alert. No obvious cranial nerve deficits. Motor grossly within normal limits. Normal speech. PSYCHIATRIC: Anxious. Data Data Last Documented VS Vital Signs Date Time Temp Pulse Resp B/P (MAP) Pulse Ox O2 Delivery O2 Flow Rate FiO2 05/13/17 08:10 100 Room Air 10/10/17 08:07 16 05/13/17 07:59 98.0 74 Orders Orders Complete Blood Count With Diff (05/13/17 08:08) Comprehensive Metabolic Panel (05/13/17 08:08) Lipase (05/13/17 08:08) Urinalysis - C+S If Indicated (05/13/17 08:08) Ct Abd/Pel W Iv Contrast(Rout) (05/13/17 08:08) Iv Access Insert/Monitor (05/13/17 08:08) Ecg Monitoring (05/13/17 08:08) Oximetry (05/13/17 08:08) Sodium Chloride 0.9% Flush (Ns Flush) (05/13/17 08:15) Ed Urine Pregnancytest Poc (05/13/17 08:08) Ondansetron Inj (Zofran Inj) (05/13/17 08:15) Ketorolac Inj (Toradol Inj) (05/13/17 08:15) Sodium Chlor 0.9% 1000 Ml Inj (Ns 1000 M (05/13/17 08:15) Gc And Chlamydia Pcr (05/13/17 08:13) Wet Prep Profile (05/13/17 08:13) Iohexol 350 Inj (Omnipaque 350 Inj) (05/13/17 08:59) Morphine Inj (Morphine Inj) (05/13/17 09:30) Urine Culture (05/13/17 08:25) Potassium Chloride (Kcl) (05/13/17 09:30) Diphenhydramine Inj (Benadryl Inj) (05/13/17 09:45) Ceftriaxone Inj (Rocephin Inj) (05/13/17 09:45) Labs Laboratory Tests Test 05/13/17 08:25 05/13/17 09:25 White Blood Count 10.1 TH/MM3 Red Blood Count 5.35 MIL/MM3 Hemoglobin 10.5 GM/DL Hematocrit 34.7 % Mean Corpuscular Volume 64.8 FL Mean Corpuscular Hemoglobin 19.7 PG Mean Corpuscular Hemoglobin Concent 30.4 % Red Cell Distribution Width 18.6 % Platelet Count 304 TH/MM3 Mean Platelet Volume 9.1 FL Neutrophils (%) (Auto) 73.5 % Lymphocytes (%) (Auto) 16.0 % Monocytes (%) (Auto) 10.1 % Eosinophils (%) (Auto) 0.0 % Basophils (%) (Auto) 0.4 % Neutrophils # (Auto) 7.4 TH/MM3 Lymphocytes # (Auto) 1.6 TH/MM3 Monocytes # (Auto) 1.0 TH/MM3 Eosinophils # (Auto) 0.0 TH/MM3 Basophils # (Auto) 0.0 TH/MM3 CBC Comment DIFF FINAL Differential Comment Urine Color DARK-BROWN Urine Turbidity CLOUDY Urine pH 6.0 Urine Specific [place] 1.023 Urine Protein 100 mg/dL Urine Glucose (UA) NEG mg/dL Urine Ketones 40 mg/dL Urine Occult Blood LARGE Urine Nitrite POS Urine Bilirubin NEG Urine Urobilinogen 2.0 MG/DL Urine Leukocyte Esterase LARGE Urine RBC /hpf Urine WBC /hpf Urine WBC Clumps MANY Urine Squamous Epithelial Cells 11 /hpf Urine Bacteria MOD /hpf Urine Mucus MANY /lpf Microscopic Urinalysis Comment CULTURE INDICATED Blood Urea Nitrogen 18 MG/DL Creatinine 1.01 MG/DL Random Glucose 137 MG/DL Total Protein 8.4 GM/DL Albumin 4.5 GM/DL Calcium Level 9.8 MG/DL Alkaline Phosphatase 65 U/L Aspartate Amino Transf (AST/SGOT) 56 U/L Alanine Aminotransferase (ALT/SGPT) 59 U/L Total Bilirubin 0.5 MG/DL Sodium Level 141 MEQ/L Potassium Level 3.1 MEQ/L Chloride Level 107 MEQ/L Carbon Dioxide Level 21.9 MEQ/L Anion Gap 12 MEQ/L Estimat Glomerular Filtration Rate 76 ML/MIN Lipase 81 U/L Clue Cells (Wet Prep) NONE SEEN Vaginal Trichomonas (Wet Prep) NONE SEEN Vaginal Yeast (Wet Prep) NONE SEEN MDM Medical Decision Making Medical Screen Exam Complete: Yes Emergency Medical Condition: Yes Differential Diagnosis Menstrual cramps vs. colitis vs. UTI vs. PID vs. malingering Narrative Course 31yo F with abdominal pain, nausea and vomiting. Pt states she has this every month when her period is here. Labs reviewed, no leukocytosis. H/H low at 10.5 /34.7 but this is her baseline. Mild hypokalemia at 3.1, ordered PO KCl but pt refused and states he does not want pills. She is tolerating PO and drinking water. AST/ALT mildly elevated at 56/59 respectively. Normal lipase. UA showed positive nitrite. Given ceftriaxone 1gm IV. negative. CT a/ p showed nearly striated nephrogram of kidneys likely related to phase of contrast. Clinical correlation for pyelonephritis recommended. Stable left ovarian cyst. Pt returned from CT scan saying her right eyelid is swollen. It does appear a little swollen. Denies any itching, pain, changes in vision, sob, tongue or lip swelling, rash. Pt given diphenhydramine 25mg IV but does not feel that this is an allergic reaction. Pt reevaluated after morphine and pain is completely resolved. No CVA tenderness bilaterally. Return precautions given. Diagnosis Primary Impression: Cystitis Patient Instructions: General Instructions Departure Forms: Tests/Procedures Additional Instructions: Please follow up with your OIL FIELD LABORER and PMD in 3-7 days. Return to the ED if symptoms worsen. Med/Other Pt SpecificInfo: Prescription(s) given Scripts Acetaminophen (Tylenol) 325 Mg Tab 650 MG PO Q6H Y for PAIN SCALE 1 TO 4, #20 TAB 0 Refills Prov: Flores Nix DO 05/13/17 Sulfamethoxazole-Trimethoprim (Bactrim DS) 800-160 Mg Tab 1 TAB PO BID for Infection, #14 TAB 0 Refills Prov: Flores Nix DO 05/13/17 Disposition: 01 DISCHARGE HOME Condition: Stable Flores Nix DO May 13, 2017 08:13
[2017-05-13] MEDS ORDERED: KETOROLAC TROMETHAMINE 30 MG/ML (IVP) VIAL IV PUSH ONE (08:15)
[2017-05-13] MEDS ORDERED: ONDANSETRON HCL 4 MG/2 ML VIAL IV PUSH ONE (08:15)
[2017-05-13] MEDS ORDERED: SODIUM CHLOR 0.9% 1000 ML INJ 1,000 ML IV ONE (08:15)
[2017-05-13] MEDS ORDERED: SODIUM CHLORIDE 0.9% FLUSH 10 ML FLUSH IV FLUSH PRN (08:15)
[2017-05-13] MEDS ORDERED: IOHEXOL 350 MG/ML 10 ML VIAL (for RAD DIAG) IVCONTRAST ONE (08:59)
[2017-05-13 09:01] LABS: AUTOMATED NEUTROPHIL # 7.4 TH/MM3 (1.8-7.7); BASOPHIL % 0.4 % (0.0-2.0); HEMATOCRIT 34.7 % (35.0-46.0); HEMO FLAGS DIFF FINAL; LYMPHOCYTE # 1.6 TH/MM3 (1.0-4.8); MEAN CELL VOLUME 64.8 FL (80.0-100.0); MEAN CORPUSCULAR HEMOGLOBIN 19.7 PG (27.0-34.0); MEAN CORPUSCULAR HGB CONC 30.4 % (32.0-36.0); MONO % 10.1 % (0.0-8.0); NEUT % 73.5 % (16.0-70.0); PLATELET COUNT 304 TH/MM3 (150-450); RED BLOOD COUNT 5.35 MIL/MM3 (4.00-5.30); RED CELL DISTRIBUTION WIDTH 18.6 % (11.6-17.2); WHITE BLOOD COUNT 10.1 TH/MM3 (4.0-11.0)
[2017-05-13 09:14] LABS: ANION GAP 12 MEQ/L (5-15); AST (GOT) 56 U/L (15-37); BICARBONATE 21.9 MEQ/L (21.0-32.0); BLOOD UREA NITROGEN 18 MG/DL (7-18); CHLORIDE 107 MEQ/L (98-107); GLOMERULAR FILTRATION RATE 76 ML/MIN (>89); POTASSIUM 3.1 MEQ/L (3.5-5.1); SODIUM (NA) 141 MEQ/L (136-145)
[2017-05-13 09:15] LABS: ALT (GPT) 59 U/L (10-53)
[2017-05-13 09:17] LABS: ALKALINE PHOSPHATASE 65 U/L (45-117); TOTAL BILIRUBIN ADULT 0.5 MG/DL (0.2-1.0)
--- NOTE | 2017-05-13 09:17 | RADRPT ---
EXAM DATE/TIME: 05/13/2017 08:47 [facility] COMPARISON: CT ABDOMEN & PELVIS W CONTRAST, February 19, 2017, 13:04. INDICATIONS : Generalized abdominal pain with nausea and vomiting. IV CONTRAST: 90 cc Omnipaque 350 (iohexol) IV ORAL CONTRAST: No oral contrast ingested. RADIATION DOSE: 4.57 CTDIvol (mGy) MEDICAL HISTORY : None SURGICAL HISTORY : None. ENCOUNTER: Initial ACUITY: 2 days PAIN SCALE: 4/10 LOCATION: Bilateral abdomen TECHNIQUE: Volumetric scanning of the abdomen and pelvis was performed. Using automated exposure control and adjustment of the mA and/or kV according to patient size, radiation dose was kept as low as reasonably achievable to obtain optimal diagnostic quality images. DICOM format image data is av ailable electronically for review and comparison. FINDINGS: LOWER LUNGS: The visualized lower lungs are clear. LIVER: Homogeneous density without lesion. There is no dilation of the biliary tree. No calcifi ed gallstones. SPLEEN: Normal size without lesion. PANCREAS: Within normal limits. KIDNEYS: Daily striated nephrogram likely due to phase of contrast. Otherwise, symmetrical enhanc ement without evidence for hydronephrosis or radiopaque renal calculi. ADRENAL GLANDS: Within normal limits. VASCULAR: There is no aortic aneurysm. BOWEL/MESENTERY: The stomach, small bowel, and colon demonstrate no acute abnormality. Appendix is visualized and normal in appearance. There is no free intraperitoneal air or fluid. ABDOMINAL WALL: Within normal limits. RETROPERITONEUM: There is no lymphadenopathy. BLADDER: No wall thickening or mass. REPRODUCTIVE: Redemonstration of prominent endometrium although improved from prior exam. Stable 4.1 cm left adnexal cyst. INGUINAL: There is no lymphadenopathy or hernia. MUSCULOSKELETAL: Within normal limits for patient age. CONCLUSION: 1. Nearly striated nephrogram appearance of the kidneys likely related to phase of contrast. Clinical correlation for pyelonephritis is recommended. 2. Improved prominent endometrium compared with 02/19/2017 exam. Stable left ovarian 4.1 cm cyst. Clifton Dave MD on May 13, 2017 at 9:08 Board Certified Radiologist. This report was verified electronically.
[2017-05-13 09:18] LABS: BACTERIA, URINE MOD /hpf; BLOOD, URINE LARGE (NEG); COMMENT (UR) CULTURE INDICATED; CULTURE IF INDICATED CULTURE INDICATED; GLUCOSE,URINE NEG (NEG); KETONE, URINE 40 mg/dL (NEG); MUCUS URINE MANY /lpf (OCC); NITRITE,URINE POS (NEG); SQUAMOUS EPITHELIAL CELL URINE 11 /hpf (0-5)
[2017-05-13 09:19] LABS: URINE COLOR DARK-BROWN (YELLW/STRAW)
[2017-05-13] MEDS ORDERED: POTASSIUM CHLORIDE 20 MEQ CONTROLLED RELEASE TAB PO ONE (09:30)
[2017-05-13] MEDS ORDERED: MORPHINE SULFATE 4 MG/ML INJ IV PUSH ONE (09:30)
[2017-05-13] MEDS ORDERED: diphenhydrAMINE HCL 50 MG/ML VIAL IV PUSH ONE (09:45)
[2017-05-13] MEDS ORDERED: cefTRIAXone INJ 1,000 MG in SODIUM CHLORIDE 0.9% INJ 100 ML IV ONE (09:45)
[2017-05-13] MEDS ORDERED: TYLE325T PO (10:27)
[2017-05-13] MEDS ORDERED: BACT800T5 PO (10:27)
[2017-05-13 11:51] LABS: CHLAMYDIA PCR NOT DETECTED (NOT DETECT); NEISSERIA PCR NOT DETECTED (NOT DETECT)
[2017-05-13] MEDS ORDERED: DICL75TA PO (22:21)
[2017-05-13] MEDS ORDERED: ZOFR4TAB3 SL (22:21)
[2017-05-14] MEDS ORDERED: IBUP-232 PO (13:45)
== END 2017-05-13 11:04 | disposition home or self-care (01) ==
LOC: NEPE 07:56
DX: N30.90 Cystitis, unspecified without hematuria (principal); B96.20 Unspecified Escherichia coli [E. coli] as the cause of diseases classified elsewhere
CPT/HCPCS: 74177; 80053; 81001; 83690; 84703; 85025; 87077; 87086; 87186; 87210; 87491; 87591; 96361; 96365; 96375; 99284; J0696; J1200; J1885; J2270; J2405; J7030; Q9967

== ENCOUNTER 2017-05-13 21:07 | Emergency (ER) | payer OTHER ==
[~2017-05-13] VITALS: Ht 160 cm; Wt 56.0 kg
[~2017-05-13 21:07] MED LIST changes: +BACT800T5 PO; +TYLE325T PO
[2017-05-13 21:11] VITALS: BP 116/76; PULSE 72; RESP 16; TEMP 98.5; O2SAT 98
--- NOTE | 2017-05-13 21:39 | PD ---
Physical Exam Date Seen by Provider: May 13, 2017 Time Seen by Provider: 21:38 Narrative 31 yo female here for eval of bad period pains. Has 10/10 pain. Moaning in triage. history is limited. Per patient is her period and she was told to come here if her pain worsens. Vitals are stable in triage. Awaiting bed placement. Data Data Last Documented VS Vital Signs Date Time Temp Pulse Resp B/P (MAP) Pulse Ox O2 Delivery O2 Flow Rate FiO2 05/13/17 21:11 98.5 72 16 116/76 (89) 98 Room Air [facility] Medical Record Reviewed: Yes Supervised Visit with BERTA: No Vinnie Rider May 13, 2017 21:39
[2017-05-13 21:51] VITALS: BP 135/77; PULSE 64; RESP 26; O2SAT 100
[2017-05-13] MEDS ORDERED: SODIUM CHLOR 0.9% 1000 ML INJ 1,000 ML IV SCH (21:57)
[2017-05-13] MEDS ORDERED: KETOROLAC TROMETHAMINE 30 MG/ML (IVP) VIAL IV PUSH ONE (22:00)
[2017-05-13] MEDS ORDERED: MORPHINE SULFATE 4 MG/ML INJ IV PUSH ONE (22:00)
[2017-05-13] MEDS ORDERED: ONDANSETRON HCL 4 MG/2 ML VIAL IV PUSH ONE (22:00)
--- NOTE | 2017-05-13 22:08 | PD ---
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 She reports that her current symptoms are consistent with her dysmenorrhea pain and started when she started her menstrual period 2 days ago. She describes a generalized constant cramping pain along her abdomen with no alleviating factors. She does not use any medication at home for the pain. She reports that she typically has to come to the emergency room for pain control. Per chart the patient has been seen here several times in the past for dysmenorrhea. She was seen here this morning for evaluation of this pain. She underwent a pelvic examination which was unremarkable, negative GC and wet prep. She underwent a CT of the abdomen and pelvis which revealed striated nephrogram of kidneys likely related to phase of contrast but clinical correlation for pyelonephritis recommended. She had mild hypokalemia at 3.1 and apparently refused oral potassium chloride. She was given IV morphine, Benadryl, Toradol and Zofran and discharged. She returns this evening with the same pain. She was given prescriptions for Tylenol and Bactrim. She has no other complaints at this time. PFSH Past Medical History Medical History: Denies Significant Hx Anemia: Yes Diminished Hearing: No Immunizations Current: No Tetanus Vaccination: Unknown Influenza Vaccination: No ?: Unknown : 3 Para: 3 Ectopic : No Ovarian Cysts: Yes (removed) Tubal Ligation: Yes Past Surgical History Surgical History: No Previous Surgery Section: Yes (x3) Gynecologic Surgery: Yes (CYST REMOVAL) Hysterectomy: No Social History Alcohol Use: No Tobacco Use: No Substance Use: No Allergies-Medications (Allergen,Severity, Reaction): Coded Allergies: crab (Verified Allergy, Severe, 05/13/17) Reported Meds & Prescriptions Reported Meds & Active Scripts Active Diclofenac Sodium DR (Diclofenac Sodium) 75 Mg Tabdr 75 Mg PO BID 7 Days Zofran Odt (Ondansetron Odt) 4 Mg Tab 4 Mg SL Q6HR PRN Tylenol (Acetaminophen) 325 Mg Tab 650 Mg PO Q6H PRN Bactrim DS (Sulfamethoxazole-Trimethoprim) 800-160 Mg Tab 1 Tab PO BID Zofran Odt (Ondansetron Odt) 4 Mg Tab 4 Mg SL Q6HR PRN Zofran Odt (Ondansetron Odt) 4 Mg Tab 4 Mg SL Q6HR PRN Review of Systems Except as stated in HPI: all other systems reviewed are Neg Physical Exam Narrative GENERAL: This is a well-developed well-nourished female who appears uncomfortable on initial examination. Her vital signs have been reviewed SKIN: Warm and dry. HEAD: Atraumatic. Normocephalic. EYES: Pupils equal and round. No scleral icterus. No injection or drainage. ENT: No nasal bleeding or discharge. Mucous membranes pink and moist. NECK: Trachea midline. No JVD. CARDIOVASCULAR: Regular rate and rhythm. No murmur appreciated. RESPIRATORY: No accessory muscle use. Clear to auscultation. Breath sounds equal bilaterally. GASTROINTESTINAL: Abdomen soft with generalized tenderness to palpation without guarding. There is no CVA tenderness. MUSCULOSKELETAL: No obvious deformities. No clubbing. No cyanosis. No edema. NEUROLOGICAL: Awake and alert. No obvious cranial nerve deficits. Motor grossly within normal limits. Normal speech. PSYCHIATRIC: Appropriate mood and affect; insight and judgment normal. Data Data Last Documented VS Vital Signs Date Time Temp Pulse Resp B/P (MAP) Pulse Ox O2 Delivery O2 Flow Rate FiO2 05/13/17 21:51 64 26 135/77 (96) 100 Room Air 05/13/17 21:11 98.5 Orders Orders Ketorolac Inj (Toradol Inj) (05/13/17 22:00) Morphine Inj (Morphine Inj) (05/13/17 22:00) Ondansetron Inj (Zofran Inj) (05/13/17 22:00) Sodium Chlor 0.9% 1000 Ml Inj (Ns 1000 M (05/13/17 21:57) Potassium Chloride (Kcl) (05/13/17 22:15) Potassium Chloride (Kcl) (05/13/17 22:15) Ed Discharge Order (05/13/17 22:17) Potassium Chloride Powder (Kcl Powder) (05/13/17 22:30) MDM Medical Decision Making Medical Screen Exam Complete: Yes Emergency Medical Condition: Yes Medical Record Reviewed: Yes Differential Diagnosis Dysmenorrhea, endometriosis, ovarian torsion, pyelonephritis, cystitis Narrative Course An IV was established, the patient was given 4 mg morphine, 30 mg Toradol, 4 mg Zofran, 1 L normal saline bolus. She was also noted to be hypokalemic from her previous visit today, therefore 40 mEq of oral potassium chloride and 10 mEq IV potassium chloride have been ordered. 2220: Upon reexamination the patient is feeling significantly improved, she is currently sleeping. Discussed the plan with the patient to discharge her with a short course of NSAIDs and Zofran and she is agreeable. She reports that her primary care physician Dr. Garcias is currently in the process of getting her an appointment with an DIRECTOR INVESTOR RELATIONS for further evaluation of her severe dysmenorrhea. Diagnosis Primary Impression: Dysmenorrhea Additional Impressions: Urinary tract infection Qualified Codes: N39.0 - Urinary tract infection, site not specified; R31.9 - Hematuria, unspecified Hypokalemia Referrals: [facility] Cryptologic Linguist Additional Instructions: Follow-up with a humidifier operator. Medication as prescribed. Take the Bactrim that was previously prescribed for urinary tract infection. Stay well hydrated. Return for any emergent medical conditions. Med/Other Pt SpecificInfo: Prescription(s) given Scripts Diclofenac Sodium DR (Diclofenac Sodium DR) 75 Mg Tabdr 75 MG PO BID for 7 Days, #14 TAB 0 Refills Prov: Cheryl Bonilla MD 05/13/17 Ondansetron Odt (Zofran Odt) 4 Mg Tab 4 MG SL Q6HR Y for Nausea/Vomiting, #20 TAB 0 Refills Prov: Cheryl Bonilla MD 05/13/17 Disposition: 01 DISCHARGE HOME Condition: Stable Wayne Julian May 13, 2017 22:08
[2017-05-13] MEDS ORDERED: POTASSIUM CHLORIDE 10 MEQ CONTROLLED RELEASE TAB PO ONE (22:15)
[2017-05-13] MEDS ORDERED: POTASSIUM CHLORIDE 20 MEQ CONTROLLED RELEASE TAB PO ONE (22:15)
[2017-05-13] MEDS ORDERED: DICL75TA PO (22:21)
[2017-05-13] MEDS ORDERED: ZOFR4TAB3 SL (22:21)
[2017-05-13] MEDS ORDERED: POTASSIUM CHLORIDE 20 MEQ PWD PACKET PO ONE (22:30)
[2017-05-14] MEDS ORDERED: IBUP-232 PO (13:45)
== END 2017-05-13 22:56 | disposition home or self-care (01) ==
LOC: NEPE 21:07
DX: N94.6 Dysmenorrhea, unspecified (principal); N39.0 Urinary tract infection, site not specified; E87.6 Hypokalemia
CPT/HCPCS: 96361; 96374; 96375; 99284; J1885; J2270; J2405; J7030

== ENCOUNTER 2017-05-14 11:17 | Emergency (ER) | payer OTHER ==
[~2017-05-14] VITALS: Ht 160 cm; Wt 52.0 kg
[~2017-05-14 11:17] MED LIST changes: +DICL75TA PO; -NAPR1TAB34 PO
[2017-05-14 11:22] VITALS: BP 171/82; PULSE 103; RESP 30; TEMP 98.7; O2SAT 99
--- NOTE | 2017-05-14 11:26 | PD ---
Physical Exam Time Seen by Provider: 11:24 Narrative 31-year-old female presents with lower abdominal pain, nausea, vomiting 3 days. The patient states she was seen here last night, the day before and has also been to [facility] for evaluation. Reports history of ovarian cysts. Patient is consistently moaning out loud and flailing herself around in the wheelchair in triage and in the waiting room. Patient seen in triage. Vital signs reviewed. Patient awaiting bed placement. Data Data Last Documented VS Vital Signs Date Time Temp Pulse Resp B/P (MAP) Pulse Ox O2 Delivery O2 Flow Rate FiO2 05/14/17 11:22 98.7 103 30 171/82 (111) 99 MDM Supervised Visit with BERTA: Candie Gage May 14, 2017 11:25
[2017-05-14 11:34] VITALS: BP 169/84; PULSE 68; RESP 21; O2SAT 100
[2017-05-14 12:20] VITALS: BP 101/67; PULSE 78; RESP 20; O2SAT 100
--- NOTE | 2017-05-14 12:30 | PD ---
HPI Chief Complaint: Abdominal Pain Time Seen by Provider: 12:24 Travel History International Travel<30 days: No Contact w/Intl Traveler<30days: No Traveled to known affect area: No History of Present Illness HPI 31-year-old female came to the emergency room with history of lower abdominal pain. Patient has chronic history of abdominal pain. As per the mother every time she gets her menstrual cycle she has severe pain. In fact patient was in the emergency room last night for the same thing. It is very difficult to communicate with the patient since she is rolling on the stretcher and constantly moaning and screaming. Vital signs are stable. She had blood test and CAT scan done yesterday which were within normal limits except for a left ovarian cyst that stable. I asked if the patient has ever been followed up by PARAPROFESSIONAL AIDE TEACHER and patient says that her primary care never refers her to a PARAPROFESSIONAL AIDE TEACHER in spite of for requesting. No aggravating or relieving factors. The pain is worse but no different than her pain every month as per the mother. No history of vomiting or diarrhea. PFSH Past Medical History Narrative Medical List of her past medical, surgical, social and family history is reviewed from the nursing note. Anemia: Yes Diminished Hearing: No Genitourinary: Yes Immunizations Current: No Tetanus Vaccination: > 5 Years Influenza Vaccination: No ?: Not LMP: 05/12/17 : 3 Para: 3 Ectopic : No Ovarian Cysts: Yes (removed) Tubal Ligation: Yes Past Surgical History Section: Yes (x3) Gynecologic Surgery: Yes (CYST REMOVAL) Hysterectomy: No Social History Alcohol Use: Yes (ocassionally) Tobacco Use: Yes Substance Use: No (pt denies ) Allergies-Medications (Allergen,Severity, Reaction): Coded Allergies: crab (Verified Allergy, Severe, hives, 05/14/17) Comments List of her allergies reviewed from the nursing note. Reported Meds & Prescriptions Reported Meds & Active Scripts Active Ibuprofen 600 Mg Tab 600 Mg PO Q6H PRN Narrative Medication List of her home medications reviewed from the nursing note. Review of Systems Except as stated in HPI: all other systems reviewed are Neg Genitourinary: Positive: Pelvic Pain (cyclic) Physical Exam Narrative GENERAL: Awake, alert, anxious, significant distress SKIN: Focused skin assessment warm/dry. HEAD: Atraumatic. Normocephalic. EYES: Pupils equal and round. No scleral icterus. No injection or drainage. ENT: No nasal bleeding or discharge. Mucous membranes pink and moist. NECK: Trachea midline. No JVD. CARDIOVASCULAR: Regular rate and rhythm. No murmur appreciated. RESPIRATORY: No accessory muscle use. Clear to auscultation. Breath sounds equal bilaterally. GASTROINTESTINAL: Abdomen soft, non-tender, nondistended. Hepatic and splenic margins not palpable. MUSCULOSKELETAL: No obvious deformities. No clubbing. No cyanosis. No edema. NEUROLOGICAL: Awake and alert. No obvious cranial nerve deficits. Motor grossly within normal limits. Normal speech. PSYCHIATRIC: Appropriate mood and affect; insight and judgment normal. Data Data Last Documented VS Vital Signs Date Time Temp Pulse Resp B/P (MAP) Pulse Ox O2 Delivery O2 Flow Rate FiO2 05/14/17 13:55 97.8 78 16 106/83 (91) 99 05/14/17 13:20 Room Air Orders Orders Ketorolac Inj (Toradol Inj) (05/14/17 12:45) Sodium Chlor 0.9% 1000 Ml Inj (Ns 1000 M (05/14/17 12:45) Morphine Inj (Morphine Inj) (05/14/17 13:15) Mandatory Outpatient Referral (05/14/17 13:43) Ed Discharge Order (05/14/17 13:45) [facility] Medical Decision Making Medical Screen Exam Complete: Yes Emergency Medical Condition: Yes Medical Record Reviewed: Yes Differential Diagnosis Acute on chronic abdominal pain, ovarian cyst Narrative Course 1:32 PM initially I had ordered IV Toradol and IV fluid bolus. The nurse came back to me and said that patient is demanding to get morphine since that is what she gets all the time. Also here the patient is continuously screaming. I have ordered a low-dose of morphine. I'm concerned if this patient has opiate seeking behavior. However I'm going to discharge her home since rest of her test results were within normal limits less than 24 hours ago. I will give her a mandatory referral with PARAPROFESSIONAL AIDE TEACHER. Procedures EKG Prior to Arrival: No Diagnosis Primary Impression: acute on chronic abdominal pain Additional Impression: Chronic pelvic pain in female Referrals: Fatoumata Pompa MD 3 days Med/Other Pt SpecificInfo: Prescription(s) given Scripts Ibuprofen (Ibuprofen) 600 Mg Tab 600 MG PO Q6H Y for Pain/Inflammation, #40 TAB 0 Refills Prov: Angeles,Shravanti R. MD 05/14/17 Disposition: 01 DISCHARGE HOME Condition: Stable Jessica Reynoso MD May 14, 2017 12:30
[2017-05-14] MEDS ORDERED: SODIUM CHLOR 0.9% 1000 ML INJ 1,000 ML IV ONE (12:45)
[2017-05-14] MEDS ORDERED: KETOROLAC TROMETHAMINE 30 MG/ML (IVP) VIAL IV PUSH ONE (12:45)
[2017-05-14] MEDS ORDERED: MORPHINE SULFATE 2 MG/ML INJ IV PUSH ONE (13:15)
[2017-05-14 13:20] VITALS: BP 111/64; PULSE 83; RESP 17; O2SAT 99
[2017-05-14 13:40] VITALS: RESP 17
[2017-05-14] MEDS ORDERED: IBUP-232 PO (13:45)
[2017-05-14 13:55] VITALS: BP 106/83; TEMP 97.8
== END 2017-05-14 13:55 | disposition home or self-care (01) ==
LOC: NEPE 11:17
DX: R10.2 Pelvic and perineal pain (principal); G89.29 Other chronic pain; N83.202 Unspecified ovarian cyst, left side; Z72.0 Tobacco use
CPT/HCPCS: 96361; 96374; 96375; 99284; J1885; J2270; J7030

== ENCOUNTER 2017-10-18 22:19 | Emergency (ER) | payer OTHER ==
[~2017-10-18] VITALS: Ht 157.5 cm; Wt 68.0 kg
[~2017-10-18 22:19] MED LIST changes: -BACT800T5 PO; -DICL75TA PO; +IBUP-232 PO; -TYLE325T PO; -ZOFR4TAB3 SL
[2017-10-18 22:40] VITALS: BP 110/66; PULSE 64; RESP 16; TEMP 98.4; O2SAT 100
--- NOTE | 2017-10-19 00:21 | PD ---
HPI Chief Complaint: Pain: Acute or Chronic Time Seen by Provider: 00:13 Travel History International Travel<30 days: No Contact w/Intl Traveler<30days: No Traveled to known affect area: No History of Present Illness HPI Examined in the presence of a female nurse. 32-year-old female presents for evaluation of pelvic pain. Symptoms started today. Pain is a crampy constant pain with no relieving factors. She took tramadol at home with no relief which is what prompted evaluation. She reports that the she has exact same pain every month during her menstrual period and this is no different. She has been seen here numerous times in the past for evaluation of this pain. She reports that she has a primary care physician, Dr. Zarate, but she does not follow with a supervisor maple products in regard to this issue. She denies dysuria, fevers or chills, diarrhea or constipation. No other complaints. PFSH Past Medical History Anemia: Yes Diminished Hearing: No Genitourinary: Yes Immunizations Current: No Tetanus Vaccination: Unknown Influenza Vaccination: No ?: Unknown LMP: 10/17/17 : 3 Para: 3 Ectopic : No Ovarian Cysts: Yes (removed) Tubal Ligation: Yes Past Surgical History Section: Yes (x3) Gynecologic Surgery: Yes (CYST REMOVAL, ) Hysterectomy: No Social History Alcohol Use: Yes (ocassionally) Tobacco Use: No Substance Use: No (pt denies ) Allergies-Medications (Allergen,Severity, Reaction): Coded Allergies: crab (Verified Allergy, Severe, hives, 10/18/17) Reported Meds & Prescriptions Reported Meds & Active Scripts Active Bactrim DS (Sulfamethoxazole-Trimethoprim) 800-160 Mg Tab 1 Tab PO BID Diclofenac Sodium DR (Diclofenac Sodium) 75 Mg Tabdr 75 Mg PO BID 10 Days Ibuprofen 600 Mg Tab 600 Mg PO Q6H PRN Review of Systems Except as stated in HPI: all other systems reviewed are Neg Physical Exam Narrative Examined in the presence of a female nurse GENERAL: Well-developed well-nourished female who is moaning and wailing. SKIN: Warm and dry. HEAD: Atraumatic. Normocephalic. EYES: Pupils equal and round. No scleral icterus. No injection or drainage. ENT: No nasal bleeding or discharge. Mucous membranes pink and moist. NECK: Trachea midline. No JVD. CARDIOVASCULAR: Regular rate and rhythm. No murmur appreciated. RESPIRATORY: No accessory muscle use. Clear to auscultation. Breath sounds equal bilaterally. GASTROINTESTINAL: Abdomen soft, tender to palpation in the lower quadrants. MUSCULOSKELETAL: No obvious deformities. No clubbing. No cyanosis. No edema. NEUROLOGICAL: Awake and alert. No obvious cranial nerve deficits. Motor grossly within normal limits. Normal speech. Data Data Last Documented VS Vital Signs Date Time Temp Pulse Resp B/P (MAP) Pulse Ox O2 Delivery O2 Flow Rate FiO2 10/18/17 22:40 98.4 64 16 110/66 (81) 100 Orders Orders Urinalysis - C+S If Indicated (10/19/17 00:19) Ed Urine Pregnancytest Poc (10/19/17 00:19) Ketorolac Inj (Toradol Inj) (10/19/17 00:30) Urine Culture (10/19/17 00:40) Morphine Inj (Morphine Inj) (10/19/17 02:00) Ceftriaxone Inj (Rocephin Inj) (10/19/17 02:00) Ed Discharge Order (10/19/17 01:56) Labs Laboratory Tests Test 10/19/17 00:40 Urine Color LIGHT-ORANGE Urine Turbidity HAZY Urine pH 8.0 Urine Specific [place] 1.021 Urine Protein 100 mg/dL Urine Glucose (UA) NEG mg/dL Urine Ketones 40 mg/dL Urine Occult Blood LARGE Urine Nitrite POS Urine Bilirubin NEG Urine Urobilinogen LESS THAN 2.0 MG/DL Urine Leukocyte Esterase LARGE Urine RBC /hpf Urine WBC 102 /hpf Urine WBC Clumps OCC Urine Squamous Epithelial Cells 8 /hpf Urine Bacteria MANY /hpf Urine Mucus MANY /lpf Microscopic Urinalysis Comment CULTURE INDICATED MDM Medical Decision Making Medical Screen Exam Complete: Yes Emergency Medical Condition: Yes Medical Record Reviewed: Yes Differential Diagnosis Dysmenorrhea, endometriosis, ovarian torsion, ovarian cyst, cystitis Narrative Course I reviewed her records. She has been seen here numerous times in the past for evaluation of the same pain. She reports that this is similar pain that she has had monthly for the past 23 years. A urine test and the urinalysis have been ordered. IV Toradol has been ordered. Urinalysis is consistent with urinary tract infection. She will be given a dose of Rocephin here and discharged with Bactrim as well as diclofenac for her dysmenorrhea. Recommended that she follow-up with a supervisor maple products to discuss possible hysterectomy. Diagnosis Primary Impression: Dysmenorrhea Additional Impression: Cystitis Referrals: Radio Journalist Additional Instructions: Medication as prescribed. Follow-up with a supervisor maple products. Return for any emergent medical conditions. Med/Other Pt SpecificInfo: Prescription(s) given Scripts Sulfamethoxazole-Trimethoprim (Bactrim DS) 800-160 Mg Tab 1 TAB PO BID for Infection, #14 TAB 0 Refills Prov: Júnior Quintero MD 10/19/[address] (Diclofenac Sodium DR) 75 Mg Tabdr 75 MG PO BID for 10 Days, #20 TAB 0 Refills Prov: Júnior Quintero MD 10/19/17 Disposition: 01 DISCHARGE HOME Condition: Stable Wayne Julian Oct 19, 2017 00:21
[2017-10-19] MEDS ORDERED: KETOROLAC TROMETHAMINE 30 MG/ML (IVP) VIAL IV PUSH ONE (00:30)
[2017-10-19 01:20] LABS: BACTERIA, URINE MANY /hpf; BILIRUBIN, URINE NEG (NEG); BLOOD, URINE LARGE (NEG); GLUCOSE,URINE NEG (NEG); KETONE, URINE 40 mg/dL (NEG); MUCUS URINE MANY /lpf (OCC); NITRITE,URINE POS (NEG); SQUAMOUS EPITHELIAL CELL URINE 8 /hpf (0-5); URINE COLOR LIGHT-ORANGE (YELLW/STRAW); URINE LEUKOCYTE ESTERASE LARGE (NEG); WHITE BLOOD CELL CLUMPS OCC
[2017-10-19] MEDS ORDERED: BACT800T5 PO (01:54)
[2017-10-19] MEDS ORDERED: DICL75TA PO (01:54)
[2017-10-19] MEDS ORDERED: MORPHINE SULFATE 4 MG/ML INJ IV PUSH ONE (02:00)
[2017-10-19] MEDS ORDERED: cefTRIAXone INJ 1,000 MG in SODIUM CHLORIDE 0.9% INJ 100 ML IV ONE (02:00)
[2017-10-19] MEDS ORDERED: ZOFR4TAB PO (02:45)
[2017-10-19] MEDS ORDERED: MACR100C2 PO (18:42)
== END 2017-10-19 03:11 | disposition home or self-care (01) ==
LOC: NEPD 22:19
DX: N94.6 Dysmenorrhea, unspecified (principal); N30.90 Cystitis, unspecified without hematuria; B96.20 Unspecified Escherichia coli [E. coli] as the cause of diseases classified elsewhere
CPT/HCPCS: 81001; 84703; 87077; 87086; 87186; 96374; 96375; 99284; J0696; J1885; J2270

== ENCOUNTER 2017-10-19 16:53 | Emergency (ER) | payer OTHER ==
[~2017-10-19] VITALS: Ht 162.6 cm; Wt 65.0 kg
[~2017-10-19 16:53] MED LIST changes: +BACT800T5 PO; +DICL75TA PO; +ZOFR4TAB PO
[2017-10-19 17:09] VITALS: BP 120/64; PULSE 70; RESP 20; TEMP 98.2; O2SAT 99
--- NOTE | 2017-10-19 17:27 | PD ---
HPI Chief Complaint: Abdominal Pain Time Seen by Provider: 17:23 Travel History International Travel<30 days: No Contact w/Intl Traveler<30days: No Traveled to known affect area: No History of Present Illness HPI 32-year-old female here for evaluation of painful menstrual cramps. Patient reports that her menstrual period started 3 days ago. She has been having painful cramps almost monthly and presents to the emergency department for pain management. She was seen in the emergency department yesterday and was diagnosed with a UTI as well. Urine was negative. She was treated in the emergency department and discharged home. She was doing well today until this evening when her pain returned. Pain is severe, cramping, constant, worse with movements and palpation. PFSH Past Medical History Anemia: Yes Diminished Hearing: No Genitourinary: Yes Immunizations Current: No ?: Not LMP: CURRENT : 3 Para: 3 Ectopic : No Ovarian Cysts: Yes (removed) Tubal Ligation: Yes Past Surgical History Section: Yes (x3) Gynecologic Surgery: Yes (CYST REMOVAL, ) Hysterectomy: No Social History Alcohol Use: Yes (ocassionally) Tobacco Use: No Substance Use: No (pt denies ) Allergies-Medications (Allergen,Severity, Reaction): Coded Allergies: crab (Verified Allergy, Severe, hives, 10/18/17) Reported Meds & Prescriptions Reported Meds & Active Scripts Active Zofran (Ondansetron HCl) 4 Mg Tab 4 Mg PO Q6HR PRN Bactrim DS (Sulfamethoxazole-Trimethoprim) 800-160 Mg Tab 1 Tab PO BID Diclofenac Sodium DR (Diclofenac Sodium) 75 Mg Tabdr 75 Mg PO BID 10 Days Ibuprofen 600 Mg Tab 600 Mg PO Q6H PRN Review of Systems Except as stated in HPI: all other systems reviewed are Neg Physical Exam Narrative GENERAL: Well-developed, well-nourished, moderate distress secondary to pain, and position. SKIN: Focused skin assessment warm/dry. HEAD: Atraumatic. Normocephalic. EYES: Pupils equal and round. No scleral icterus. No injection or drainage. ENT: Mucous membranes pink and moist. NECK: Trachea midline. No JVD. CARDIOVASCULAR: Regular rate and rhythm. No murmur appreciated. RESPIRATORY: No accessory muscle use. Clear to auscultation. Breath sounds equal bilaterally. GASTROINTESTINAL: Abdomen soft, non-tender, nondistended. MUSCULOSKELETAL: No obvious deformities. No clubbing. No cyanosis. No edema. NEUROLOGICAL: Awake and alert. No obvious cranial nerve deficits. Motor grossly within normal limits. Normal speech. PSYCHIATRIC: Appropriate mood and affect; insight and judgment normal. Data Data Last Documented VS Vital Signs Date Time Temp Pulse Resp B/P (MAP) Pulse Ox O2 Delivery O2 Flow Rate FiO2 10/19/17 18:10 100 18 101/56 (71) 100 Room Air 10/19/17 17:09 98.2 Orders Orders Beta Hcg (Quant/Titer) (10/19/17 17:25) Complete Blood Count With Diff (10/19/17 17:25) Comprehensive Metabolic Panel (10/19/17 17:25) Prothrombin Time / Inr (Pt) (10/19/17 17:25) Act Partial Throm Time (Ptt) (10/19/17 17:25) Iv Access Insert/Monitor (10/19/17 17:25) Ecg Monitoring (10/19/17 17:25) Oximetry (10/19/17 17:25) Sodium Chloride 0.9% Flush (Ns Flush) (10/19/17 17:30) Morphine Inj (Morphine Inj) (10/19/17 17:30) Hydromorphone Pf Inj (Dilaudid Pf Inj) (10/19/17 18:00) Potassium Chloride (Kcl) (10/19/17 18:45) Labs Laboratory Tests Test 10/19/17 17:35 White Blood Count 8.1 TH/MM3 Red Blood Count 4.85 MIL/MM3 Hemoglobin 9.8 GM/DL Hematocrit 31.2 % Mean Corpuscular Volume 64.3 FL Mean Corpuscular Hemoglobin 20.1 PG Mean Corpuscular Hemoglobin Concent 31.3 % Red Cell Distribution Width 19.2 % Platelet Count 344 TH/MM3 Mean Platelet Volume 9.3 FL Neutrophils (%) (Auto) 75.3 % Lymphocytes (%) (Auto) 16.3 % Monocytes (%) (Auto) 7.8 % Eosinophils (%) (Auto) 0.2 % Basophils (%) (Auto) 0.4 % Neutrophils # (Auto) 6.1 TH/MM3 Lymphocytes # (Auto) 1.3 TH/MM3 Monocytes # (Auto) 0.6 TH/MM3 Eosinophils # (Auto) 0.0 TH/MM3 Basophils # (Auto) 0.0 TH/MM3 CBC Comment DIFF FINAL Differential Comment Prothrombin Time 11.1 SEC Prothromb Time International Ratio 1.1 RATIO Activated Partial Thromboplast Time 22.6 SEC Blood Urea Nitrogen 13 MG/DL Creatinine 0.96 MG/DL Random Glucose 113 MG/DL Total Protein 7.6 GM/DL Albumin 3.9 GM/DL Calcium Level 9.2 MG/DL Alkaline Phosphatase 53 U/L Aspartate Amino Transf (AST/SGOT) 37 U/L Alanine Aminotransferase (ALT/SGPT) 43 U/L Total Bilirubin 0.3 MG/DL Sodium Level 140 MEQ/L Potassium Level 3.2 MEQ/L Chloride Level 106 MEQ/L Carbon Dioxide Level 23.4 MEQ/L Anion Gap 11 MEQ/L Estimat Glomerular Filtration Rate 81 ML/MIN Human Chorionic Gonadotropin, Quant LESS THAN 1 MIU/ML MDM Medical Decision Making Medical Screen Exam Complete: Yes Emergency Medical Condition: Yes Differential Diagnosis Menstrual cramps, ovarian cyst, ovarian torsion, ectopic , PID Narrative Course Vital signs reviewed. CBC is remarkable for hemoglobin 9.8, hematocrit 31.2 which is slightly improved from her baseline. CMP is remarkable for potassium 3.2 which was replaced orally. Beta-hCG is negative. Patient was given morphine without any improvement in pain. She was then given 1 mg of Dilaudid and feels significantly improved. She is no longer moaning in pain and is talking comfortably on her cell phone. On reassessment her abdominal exam is completely benign. She tells me that her stomach pain started after taking the Bactrim that she was prescribed yesterday and is requesting another antibiotic. I will start her on Macrobid. She is stable for discharge home with outpatient follow-up with her primary care physician or an FOUNDATION ENGINEER physician this week. I will give her the information to the [facility]. She was advised on when to return to the emergency department patient verbalizes understanding and agreement with plan. Diagnosis Primary Impression: Dysmenorrhea Referrals: [facility] 3 days Primary Care Physician 3 days Additional Instructions: Follow-up with your primary care physician this week. Follow-up with an FOUNDATION ENGINEER physician this week. Return to the emergency department for worsening symptoms or any other concerns. Scripts Nitrofurantoin Monohydrate Macrocrystals (Macrobid) 100 Mg Cap 100 MG PO BID for Infection for 7 Days, #14 CAP 0 Refills Prov: Júnior Quintero MD 10/19/17 Disposition: 01 DISCHARGE HOME Condition: Stable Júnior Quintero MD Oct 19, 2017 17:27
[2017-10-19] MEDS ORDERED: MORPHINE SULFATE 2 MG/ML INJ IV PUSH ONE (17:30)
[2017-10-19] MEDS ORDERED: SODIUM CHLORIDE 0.9% FLUSH 10 ML FLUSH IV FLUSH PRN (17:30)
[2017-10-19] MEDS ORDERED: HYDROmorphone HCL PF 2 MG/ML VIAL IV PUSH ONE (18:00)
[2017-10-19 18:10] VITALS: BP 101/56; PULSE 100; RESP 18; O2SAT 100; O2SAT 98
[2017-10-19 18:10] LABS: ALBUMIN 3.9 GM/DL (3.4-5.0); ALT (GPT) 43 U/L (10-53); AST (GOT) 37 U/L (15-37); BICARBONATE 23.4 MEQ/L (21.0-32.0); BLOOD UREA NITROGEN 13 MG/DL (7-18); CALCIUM 9.2 MG/DL (8.5-10.1); CHLORIDE 106 MEQ/L (98-107); CREATININE 0.96 MG/DL (0.50-1.00); GLOMERULAR FILTRATION RATE 81 ML/MIN (>89); GLUCOSE,RANDOM 113 MG/DL (74-106); SODIUM (NA) 140 MEQ/L (136-145)
[2017-10-19 18:14] LABS: ALKALINE PHOSPHATASE 53 U/L (45-117); TOTAL BILIRUBIN ADULT 0.3 MG/DL (0.2-1.0); TOTAL PROTEIN 7.6 GM/DL (6.4-8.2)
[2017-10-19 18:21] LABS: AUTOMATED NEUTROPHIL # 6.1 TH/MM3 (1.8-7.7); BASOPHIL % 0.4 % (0.0-2.0); EOSINOPHIL % 0.2 % (0.0-4.0); HEMATOCRIT 31.2 % (35.0-46.0); HEMOGLOBIN 9.8 GM/DL (11.6-15.3); LYMPH % 16.3 % (9.0-44.0); LYMPHOCYTE # 1.3 TH/MM3 (1.0-4.8); MEAN CELL VOLUME 64.3 FL (80.0-100.0); MEAN CORPUSCULAR HEMOGLOBIN 20.1 PG (27.0-34.0); MEAN CORPUSCULAR HGB CONC 31.3 % (32.0-36.0); MEAN PLATELET VOLUME 9.3 FL (7.0-11.0); MONO % 7.8 % (0.0-8.0); MONOCYTE # 0.6 TH/MM3 (0-0.9); NEUT % 75.3 % (16.0-70.0); PLATELET COUNT 344 TH/MM3 (150-450); RED BLOOD COUNT 4.85 MIL/MM3 (4.00-5.30); RED CELL DISTRIBUTION WIDTH 19.2 % (11.6-17.2); WHITE BLOOD COUNT 8.1 TH/MM3 (4.0-11.0)
[2017-10-19 18:24] LABS: INTERNATIONAL NORMALIZED RATIO 1.1 RATIO; PROTHROMBIN TIME - PATIENT 11.1 SEC (9.8-11.6)
[2017-10-19] MEDS ORDERED: MACR100C2 PO (18:42)
[2017-10-19] MEDS ORDERED: POTASSIUM CHLORIDE 20 MEQ CONTROLLED RELEASE TAB PO ONE (18:45)
== END 2017-10-19 19:34 | disposition home or self-care (01) ==
LOC: NEPD 16:53
DX: N94.6 Dysmenorrhea, unspecified (principal)
CPT/HCPCS: 80053; 84702; 85025; 85610; 85730; 96374; 96375; 99284; J1170; J2270

== ENCOUNTER 2017-11-13 15:07 | Emergency (ER) | payer OTHER ==
[~2017-11-13] VITALS: Ht 160 cm; Wt 57.0 kg
[~2017-11-13 15:07] MED LIST changes: +MACR100C2 PO
[2017-11-13 15:23] VITALS: BP 125/58; PULSE 58; RESP 19; TEMP 97.9; O2SAT 98
[2017-11-13 18:27] LABS: AUTOMATED NEUTROPHIL # 7.1 TH/MM3 (1.8-7.7); BASOPHIL % 0.2 % (0.0-2.0); HEMATOCRIT 33.1 % (35.0-46.0); HEMOGLOBIN 10.4 GM/DL (11.6-15.3); LYMPH % 7.7 % (9.0-44.0); LYMPHOCYTE # 0.6 TH/MM3 (1.0-4.8); MEAN CELL VOLUME 65.2 FL (80.0-100.0); MEAN CORPUSCULAR HEMOGLOBIN 20.5 PG (27.0-34.0); MEAN CORPUSCULAR HGB CONC 31.5 % (32.0-36.0); MEAN PLATELET VOLUME 9.1 FL (7.0-11.0); MONO % 2.6 % (0.0-8.0); MONOCYTE # 0.2 TH/MM3 (0-0.9); NEUT % 89.5 % (16.0-70.0); PLATELET COUNT 290 TH/MM3 (150-450); RED BLOOD COUNT 5.07 MIL/MM3 (4.00-5.30); RED CELL DISTRIBUTION WIDTH 19.6 % (11.6-17.2)
[2017-11-13 18:31] LABS: AMORPHOUS SEDIMENT, URINE OCC; BACTERIA, URINE MANY /hpf; BILIRUBIN, URINE NEG (NEG); BLOOD, URINE LARGE (NEG); GLUCOSE,URINE NEG (NEG); KETONE, URINE 150 mg/dL (NEG); MUCUS URINE MANY /lpf (OCC); NITRITE,URINE NEG (NEG); PH, URINE 7.5 (5.0-8.5); SQUAMOUS EPITHELIAL CELL URINE 10 /hpf (0-5); URINE LEUKOCYTE ESTERASE LARGE (NEG)
[2017-11-13 18:32] LABS: ALBUMIN 4.2 GM/DL (3.4-5.0); ALT (GPT) 52 U/L (10-53); AST (GOT) 52 U/L (15-37); BLOOD UREA NITROGEN 11 MG/DL (7-18); CALCIUM 8.9 MG/DL (8.5-10.1); CHLORIDE 108 MEQ/L (98-107); CREATININE 0.93 MG/DL (0.50-1.00); GLOMERULAR FILTRATION RATE 84 ML/MIN (>89); GLUCOSE,RANDOM 114 MG/DL (74-106); SODIUM (NA) 140 MEQ/L (136-145)
[2017-11-13 18:32] LABS: URINE COLOR LIGHT-RED (YELLW/STRAW)
[2017-11-13 18:34] LABS: ALKALINE PHOSPHATASE 65 U/L (45-117); TOTAL BILIRUBIN ADULT 0.5 MG/DL (0.2-1.0); TOTAL PROTEIN 8.3 GM/DL (6.4-8.2)
[2017-11-13 20:41] VITALS: BP 113/77; PULSE 78; RESP 18; O2SAT 98
--- NOTE | 2017-11-13 20:55 | PD ---
HPI Chief Complaint: Abdominal Pain Time Seen by Provider: 20:43 Travel History International Travel<30 days: No Contact w/Intl Traveler<30days: No Traveled to known affect area: No History of Present Illness HPI The patient is 32 years old and complains of pain due to ovarian cyst. She reports pain every month which she attributes to menstruation and correlated cyst. It has been bothersome since menarche. No fever. The patient has run into difficulty establishing gynecology follow-up which she attributes to her primary care doctor being gerard, Dr. Nicole. She reports vomiting throughout the course of the day. She also complains of nausea. PFSH Past Medical History Anemia: Yes Diminished Hearing: No Genitourinary: Yes Immunizations Current: No ?: Not LMP: 11/2017 : 3 Para: 3 Ectopic : No Ovarian Cysts: Yes (removed) Tubal Ligation: Yes Past Surgical History Section: Yes (x3) Gynecologic Surgery: Yes (CYST REMOVAL, ) Hysterectomy: No Social History Alcohol Use: Yes (ocassionally) Tobacco Use: No Substance Use: No (pt denies ) Allergies-Medications (Allergen,Severity, Reaction): Coded Allergies: crab (Verified Allergy, Severe, hives, 11/13/17) Reported Meds & Prescriptions Reported Meds & Active Scripts Active No Active Prescriptions or Reported Medications Review of Systems Except as stated in HPI: all other systems reviewed are Neg General / Constitutional: No: Fever Physical Exam Narrative GENERAL: 32-year-old female pleasant well-nourished well-developed Vital Signs Date Time Temp Pulse Resp B/P (MAP) Pulse Ox O2 Delivery O2 Flow Rate FiO2 11/13/17 20:41 78 18 113/77 (89) 98 11/13/17 15:23 97.9 58 19 125/58 (80) 98 SKIN: Warm and dry. HEAD: Atraumatic. Normocephalic. EYES: Pupils equal and round. No scleral icterus. No injection or drainage. ENT: No nasal bleeding or discharge. Mucous membranes pink and moist. NECK: Trachea midline. No JVD. CARDIOVASCULAR: Regular rate and rhythm. RESPIRATORY: No accessory muscle use. Clear to auscultation. Breath sounds equal bilaterally. GASTROINTESTINAL: Soft. No distention. MUSCULOSKELETAL: Extremities without clubbing, cyanosis, or edema. No obvious deformities. NEUROLOGICAL: Awake and alert. No obvious cranial nerve deficits. Motor grossly within normal limits. Five out of 5 muscle strength in the arms and legs. Normal speech. PSYCHIATRIC: Appropriate mood and affect; insight and judgment normal. Data Data Last Documented VS Vital Signs Date Time Temp Pulse Resp B/P (MAP) Pulse Ox O2 Delivery O2 Flow Rate FiO2 11/13/17 20:41 78 18 113/77 (89) 98 11/13/17 15:23 97.9 Orders Orders Complete Blood Count With Diff (11/13/17:) Comprehensive Metabolic Panel (11/13/17:) Urinalysis - C+S If Indicated (11/13/17:) Ed Urine Pregnancytest Poc (11/13/17:) Iv Access Insert/Monitor (11/13/17) Oxygen Administration (11/13/17) Oximetry (11/13/17:) Lipase (11/13/17:) Urine Culture (11/13/17 17:40) Morphine Inj (Morphine Inj) (11/13/17 21:00) Ketorolac Inj (Toradol Inj) (11/13/17 21:00) Labs Laboratory Tests Test 11/13/17 17:40 11/13/17 17:50 Urine Color LIGHT-RED Urine Turbidity HAZY Urine pH 7.5 Urine Specific [place] 1.022 Urine Protein 100 mg/dL Urine Glucose (UA) NEG mg/dL Urine Ketones 150 mg/dL Urine Occult Blood LARGE Urine Nitrite NEG Urine Bilirubin NEG Urine Urobilinogen 2.0 MG/DL Urine Leukocyte Esterase LARGE Urine RBC /hpf Urine WBC 90 /hpf Urine Squamous Epithelial Cells 10 /hpf Urine Amorphous Sediment OCC Urine Bacteria MANY /hpf Urine Mucus MANY /lpf Microscopic Urinalysis Comment CULTURE INDICATED White Blood Count 8.0 TH/MM3 Red Blood Count 5.07 MIL/MM3 Hemoglobin 10.4 GM/DL Hematocrit 33.1 % Mean Corpuscular Volume 65.2 FL Mean Corpuscular Hemoglobin 20.5 PG Mean Corpuscular Hemoglobin Concent 31.5 % Red Cell Distribution Width 19.6 % Platelet Count 290 TH/MM3 Mean Platelet Volume 9.1 FL Neutrophils (%) (Auto) 89.5 % Lymphocytes (%) (Auto) 7.7 % Monocytes (%) (Auto) 2.6 % Eosinophils (%) (Auto) 0.0 % Basophils (%) (Auto) 0.2 % Neutrophils # (Auto) 7.1 TH/MM3 Lymphocytes # (Auto) 0.6 TH/MM3 Monocytes # (Auto) 0.2 TH/MM3 Eosinophils # (Auto) 0.0 TH/MM3 Basophils # (Auto) 0.0 TH/MM3 CBC Comment DIFF FINAL Differential Comment Blood Urea Nitrogen 11 MG/DL Creatinine 0.93 MG/DL Random Glucose 114 MG/DL Total Protein 8.3 GM/DL Albumin 4.2 GM/DL Calcium Level 8.9 MG/DL Alkaline Phosphatase 65 U/L Aspartate Amino Transf (AST/SGOT) 52 U/L Alanine Aminotransferase (ALT/SGPT) 52 U/L Total Bilirubin 0.5 MG/DL Sodium Level 140 MEQ/L Potassium Level 3.1 MEQ/L Chloride Level 108 MEQ/L Carbon Dioxide Level 25.0 MEQ/L Anion Gap 7 MEQ/L Estimat Glomerular Filtration Rate 84 ML/MIN Lipase 61 U/L MDM Medical Decision Making Medical Screen Exam Complete: Yes Emergency Medical Condition: Yes Medical Record Reviewed: Yes Differential Diagnosis Constipation, Gastritis, Acute Cholecystitis, Biliary Colic, Pancreatitis, [place] , Hepatitis, Bowel Obstruction, Cystitis, Mesenteric Ischemia, AAA, Appendicitis , Renal Stone/Hydronephrosis, GERD, perforated viscous Narrative Course CBC & BMP Diagram 11/13/17 17:50 Total Protein 8.3 H, Albumin 4.2, Calcium Level 8.9, Alkaline Phosphatase 65, Aspartate Amino Transf (AST/SGOT) 52 H, Alanine Aminotransferase (ALT/SGPT) 52, Total Bilirubin 0.5 Lipase is 61 Urinalysis shows UTI Pain controlled. Cipro prescription. Potassium replenished. Diagnosis Primary Impression: Dysmenorrhea Additional Impressions: Pelvic pain in female Hypokalemia UTI (urinary tract infection) Qualified Codes: N39.0 - Urinary tract infection, site not specified; R31.9 - Hematuria, unspecified Referrals: Tahira Andrade MD call for appointment Med/Other Pt SpecificInfo: Prescription(s) given Scripts Ciprofloxacin (Cipro) 500 Mg Tab 500 MG PO BID for Infection for 3 Days, #6 TAB 0 Refills Prov: Bradley Tan MD 11/13/17 Disposition: 01 DISCHARGE HOME Condition: Stable Bradley Tan MD Nov 13, 2017 20:54
[2017-11-13] MEDS ORDERED: KETOROLAC TROMETHAMINE 30 MG/ML (IVP) VIAL IV PUSH ONE (21:00)
[2017-11-13] MEDS ORDERED: MORPHINE SULFATE 4 MG/ML INJ IV PUSH ONE (21:00)
[2017-11-13] MEDS ORDERED: CIPR-9 PO (21:33)
[2017-11-13] MEDS ORDERED: CIPROFLOXACIN 500 MG TAB PO ONE (21:45)
[2017-11-14] MEDS ORDERED: OMEP20TA93 PO (13:29)
[2017-11-14] MEDS ORDERED: NAPR500T2 PO (13:29)
== END 2017-11-13 22:07 | disposition home or self-care (01) ==
LOC: NEPE 15:07
DX: N94.6 Dysmenorrhea, unspecified (principal); E87.6 Hypokalemia; N39.0 Urinary tract infection, site not specified; R31.9 Hematuria, unspecified
CPT/HCPCS: 80053; 81001; 83690; 84703; 85025; 87086; 96374; 96375; 99284; J1885; J2270

== ENCOUNTER 2017-11-14 11:13 | Emergency (ER) | payer OTHER ==
[~2017-11-14] VITALS: Ht 160 cm; Wt 57.0 kg
[~2017-11-14 11:13] MED LIST changes: -BACT800T5 PO; +CIPR-9 PO; -DICL75TA PO; -IBUP-232 PO; -MACR100C2 PO; -ZOFR4TAB PO
[2017-11-14 11:15] VITALS: BP 116/82; PULSE 72; RESP 16; TEMP 98.3; O2SAT 94
[2017-11-14] MEDS ORDERED: KETOROLAC TROMETHAMINE 60 MG/2 ML (IM) VIAL IM ONE (11:45)
[2017-11-14] MEDS ORDERED: PROCHLORPERAZINE INJ 10 MG/2 ML VIAL IM ONE (11:45)
[2017-11-14] MEDS ORDERED: HALOPERIDOL LACTATE 5 MG/ML AMP IM ONE (12:00)
[2017-11-14] MEDS ORDERED: ACETAMINOPHEN 500 MG CPLT PO ONE (12:00)
[2017-11-14] MEDS ORDERED: oxyCODONE/ACETAMINOPHEN 5 MG/325 MG TAB PO ONE (12:00)
[2017-11-14 12:45] VITALS: RESP 18
[2017-11-14] MEDS ORDERED: NAPR500T2 PO (13:29)
[2017-11-14] MEDS ORDERED: OMEP20TA93 PO (13:29)
--- NOTE | 2017-11-14 13:29 | PD ---
HPI Chief Complaint: Abdominal Pain Time Seen by Provider: 11:32 Travel History International Travel<30 days: No Contact w/Intl Traveler<30days: No Traveled to known affect area: No History of Present Illness HPI 32-year-old woman presents emerged from complaining of severe abdominal pain. Symptoms started over the past couple days. She has similar symptoms every month associated with her menstrual cycle. Been seen multiple times for this in the past. CT scans are shown a little bit of thickened endometrium which time, otherwise unremarkable. She has nausea vomiting associated with this. No other complaints. Was seen yesterday, so his pain today and to return to the emergency department. History Past Medical History Tetanus Vaccination: Unknown Influenza Vaccination: No : 3 Para: 3 Social History Alcohol Use: Yes (ocassionally) Tobacco Use: No Allergies-Medications (Allergen,Severity, Reaction): Coded Allergies: crab (Verified Allergy, Severe, hives, 11/13/17) Reported Meds & Prescriptions Reported Meds & Active Scripts Active Cipro (Ciprofloxacin HCl) 500 Mg Tab 500 Mg PO BID 3 Days Review of Systems Except as stated in HPI: all other systems reviewed are Neg Physical Exam Narrative GENERAL: 32-year-old woman, dramatically wailing and screaming rolling around on the bed. SKIN: Focused skin assessment warm/dry. HEAD: Atraumatic. Normocephalic. EYES: Pupils equal and round. No scleral icterus. No injection or drainage. ENT: No nasal bleeding or discharge. Mucous membranes pink and moist. NECK: Trachea midline. No JVD. CARDIOVASCULAR: Regular rate and rhythm. No murmur appreciated. RESPIRATORY: No accessory muscle use. Clear to auscultation. Breath sounds equal bilaterally. GASTROINTESTINAL: Abdomen is flat and soft. She is little bit tense, there is mild diffuse tenderness. No rebound or peritonitis. Some voluntary guarding. MUSCULOSKELETAL: No obvious deformities. No edema. NEUROLOGICAL: Awake and alert. No obvious cranial nerve deficits. Motor grossly within normal limits. Normal speech. Data Data Last Documented VS Vital Signs Date Time Temp Pulse Resp B/P (MAP) Pulse Ox O2 Delivery O2 Flow Rate FiO2 11/14/17 12:45 18 11/14/17 11:15 98.3 72 116/82 (93) 94 Orders Orders Prochlorperazine Inj (Compazine Inj) (11/14/17 11:45) Ketorolac Inj (Toradol Inj) (11/14/17 11:45) Haloperidol Inj (Haldol Inj) (11/14/17 12:00) Acetaminophen (Tylenol) (11/14/17 12:00) Oxycodone-Acetamin 5-325 Mg (Percocet (11/14/17 12:00) MDM Medical Decision Making Medical Screen Exam Complete: Yes Emergency Medical Condition: Yes Differential Diagnosis Endometriosis, dysmenorrhea, abdominal pain, , other Narrative Course Medical decision making Is a 32-year-old woman presents to the emergency department with, pain. Very dramatic presentation willing and screaming. She is here yesterday apparently with the same. Reviewed previous imaging, labs, test from previous presentations and from yesterday. At this point recommend supportive treatment. She was given Toradol and Compazine, she still very dramatic behavior, was given a small dose of IM Haldol to help with the persistent nausea and help her be able to calm down and relax. This improved her symptoms. She is also been given an oral dose of Percocet. Recommend outpatient follow-up, NSAIDs, PPI. Diagnosis Primary Impression: Dysmenorrhea Patient Instructions: General Instructions Additional Instructions: Take naproxen as prescribed. Take omeprazole with it as prescribed. Follow-up with your primary doctor for further evaluation. Return to the emergency department for any new or worsening symptoms. Med/Other Pt SpecificInfo: Prescription(s) given Scripts Omeprazole (Omeprazole) 20 Mg Tab 20 MG PO DAILY, #10 TAB 0 Refills Prov: Melo Chanel MD 11/14/17 Naproxen (Naproxen) 500 Mg Tab 500 MG PO BID, #20 TAB 0 Refills Prov: Melo Chanel MD 11/14/17 Disposition: 01 DISCHARGE HOME Condition: Stable Melo Chanel MD Nov 14, 2017 13:29
[2017-11-15] MEDS ORDERED: IBUP1TAB7 PO (05:16)
== END 2017-11-14 13:42 | disposition home or self-care (01) ==
LOC: NEPD 11:13
DX: N94.6 Dysmenorrhea, unspecified (principal)
CPT/HCPCS: 96372; 99283; J0780; J1630; J1885

== ENCOUNTER 2017-11-14 23:30 | Emergency (ER) | payer OTHER ==
[~2017-11-14 23:30] MED LIST changes: +NAPR500T2 PO; +OMEP20TA93 PO
[2017-11-14 23:41] VITALS: BP 122/75; PULSE 72; RESP 18; TEMP 98; O2SAT 99
[2017-11-15] MEDS ORDERED: KETOROLAC TROMETHAMINE 60 MG/2 ML (IM) VIAL IM ONE (01:30)
--- NOTE | 2017-11-15 02:40 | PD ---
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 She had been treated for UTI cipro x 3 days . She went home and then the pain came back and she returns again for the third time within 24 hours to the ER. She had been discharged to the idea of ibuprofen for her menstrual pain she had been worked up twice in the last 24 hours and I feel no further emergency room investigation or workup is warranted at this time she was negative for . I am giving her 60 IM of Toradol PFSH Past Medical History Anemia: Yes Diminished Hearing: No Genitourinary: Yes Immunizations Current: No ?: Not : 3 Para: 3 Ectopic : No Ovarian Cysts: Yes (removed) Tubal Ligation: Yes Past Surgical History Section: Yes (x3) Gynecologic Surgery: Yes (CYST REMOVAL, ) Hysterectomy: No Social History Alcohol Use: Yes (ocassionally) Tobacco Use: No Substance Use: No (pt denies ) Allergies-Medications (Allergen,Severity, Reaction): Coded Allergies: crab (Verified Allergy, Severe, hives, 11/17/17) Iodinated Contrast- Oral and IV Dye (Verified Allergy, Intermediate, Edema , 11/17/17) EDEMA TO EYES Reported Meds & Prescriptions Reported Meds & Active Scripts Active No Active Prescriptions or Reported Medications Review of Systems Except as stated in HPI: all other systems reviewed are Neg Physical Exam Narrative GENERAL: Patient is writhing in bed acting mildly bizarre shaking her feet shaking her head from side to side thrashing and moaning SKIN: Warm and dry. HEAD: Atraumatic. Normocephalic. EYES: Pupils equal and round. No scleral icterus. No injection or drainage. ENT: No nasal bleeding or discharge. Mucous membranes pink and moist. NECK: Trachea midline. No JVD. CARDIOVASCULAR: Regular rate and rhythm. RESPIRATORY: No accessory muscle use. Clear to auscultation. Breath sounds equal bilaterally. GASTROINTESTINAL: Abdomen soft, non-tender, nondistended. Hepatic and splenic margins not palpable. MUSCULOSKELETAL: Extremities without clubbing, cyanosis, or edema. No obvious deformities. NEUROLOGICAL: Awake and alert. No obvious cranial nerve deficits. Motor grossly within normal limits. Five out of 5 muscle strength in the arms and legs. Normal speech. PSYCHIATRIC: Appropriate mood and affect; insight and judgment normal. Data Data Last Documented VS Vital Signs Date Time Temp Pulse Resp B/P (MAP) Pulse Ox O2 Delivery O2 Flow Rate FiO2 11/15/17 05:17 124/72 (89) 98 11/14/17 23:41 98.0 72 18 Orders Orders Ketorolac Inj (Toradol Inj) (11/15/17 01:30) Ed Discharge Order (11/15/17 05:26) [facility] Medical Decision Making Medical Screen Exam Complete: Yes Emergency Medical Condition: Yes Differential Diagnosis menstrual cramps vs UTI cystitis vs abdo pain NOS vs endometriosis, PID 3 visit same complaint full work up prior visit on Cipro Narrative Course menstral cramps toradol given her relief and she sleeps then ready for discharge Diagnosis Primary Impression: Menorrhagia Qualified Codes: N92.0 - Excessive and frequent menstruation with regular cycle Patient Instructions: General Instructions, Menorrhagia (ED) Scripts No Active Prescriptions or Reported Meds Disposition: 01 DISCHARGE HOME Condition: Ross Amaro MD Nov 15, 2017 02:40
[2017-11-15] MEDS ORDERED: IBUP1TAB7 PO (05:16)
[2017-11-15 05:17] VITALS: BP 124/72
== END 2017-11-15 05:17 | disposition home or self-care (01) ==
LOC: NEPE 23:30
DX: N92.0 Excessive and frequent menstruation with regular cycle (principal); D64.9 Anemia, unspecified
CPT/HCPCS: 96372; 99283; J1885

== ENCOUNTER 2017-11-17 17:57 | Emergency (ER) | payer OTHER ==
[~2017-11-17 17:57] MED LIST changes: +IBUP1TAB7 PO
[2017-11-17] MEDS ORDERED: IOHEXOL 350 MG/ML 10 ML VIAL (for RAD DIAG) IVCONTRAST ONE (17:58)
[2017-11-17 18:18] VITALS: BP 117/81; PULSE 91; RESP 22; TEMP 99.1; O2SAT 100
[2017-11-17 21:18] VITALS: BP 123/72; PULSE 78; RESP 22; O2SAT 100
[2017-11-17] MEDS ORDERED: SODIUM CHLOR 0.9% 1000 ML INJ 1,000 ML IV SCH (21:25)
--- NOTE | 2017-11-17 21:29 | PD ---
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 Symptoms have been going on for about a week and she reports similar symptoms with prior menses. She reports that her menstrual period started about a week ago. She is very dramatic and I have seen the patient in the past for similar presentation. She was seen in the emergency department on 11/13/17 as well as twice on 11/14/17 for the same. Pain is severe, cramping, diffuse, constant. She denies history of abdominal surgeries. She has not yet followed up with an [facility] physician for this issue of dysmenorrhea. PFSH Past Medical History Anemia: Yes Diminished Hearing: No Genitourinary: Yes Immunizations Current: Yes Tetanus Vaccination: > 5 Years Influenza Vaccination: No ?: Not : 3 Para: 3 Ectopic : No Ovarian Cysts: Yes (removed) Tubal Ligation: Yes Past Surgical History Section: Yes (x3) Gynecologic Surgery: Yes (CYST REMOVAL, ) Hysterectomy: No Social History Alcohol Use: Yes (ocassionally) Tobacco Use: No Substance Use: No (pt denies ) Allergies-Medications (Allergen,Severity, Reaction): Coded Allergies: crab (Verified Allergy, Severe, hives, 11/17/17) Iodinated Contrast- Oral and IV Dye (Verified Allergy, Intermediate, Edema , 11/17/17) EDEMA TO EYES Reported Meds & Prescriptions Reported Meds & Active Scripts Active No Active Prescriptions or Reported Medications Review of Systems Except as stated in HPI: all other systems reviewed are Neg Physical Exam Narrative GENERAL: Well-developed, well-nourished, moaning in pain, retching into an emesis bag SKIN: Focused skin assessment warm/dry. HEAD: Atraumatic. Normocephalic. EYES: Pupils equal and round. No scleral icterus. No injection or drainage. ENT: Mucous membranes pink and moist. NECK: Trachea midline. No JVD. CARDIOVASCULAR: Regular rate and rhythm. RESPIRATORY: No accessory muscle use. Clear to auscultation. Breath sounds equal bilaterally. GASTROINTESTINAL: Abdomen soft, nondistended. Mild diffuse tenderness without peritoneal signs. Normal bowel sounds. No hernias. MUSCULOSKELETAL: No obvious deformities. No clubbing. No cyanosis. No edema. NEUROLOGICAL: Awake and alert. No obvious cranial nerve deficits. Motor grossly within normal limits. Normal speech. PSYCHIATRIC: Appropriate mood and affect; insight and judgment normal. Data Data Last Documented VS Vital Signs Date Time Temp Pulse Resp B/P (MAP) Pulse Ox O2 Delivery O2 Flow Rate FiO2 11/17/17:18 78 22 123/72 (89) 100 11/17/17 18:18 99.1 Orders Orders Beta Hcg (Quant/Titer) (11/17/17 21:25) Complete Blood Count With Diff (11/17/17:25) Comprehensive Metabolic Panel (11/17/17 21:) Lipase (11/17/17:25) Prothrombin Time / Inr (Pt) (11/17/17:25) Act Partial Throm Time (Ptt) (11/17/17 21:25) Urinalysis - C+S If Indicated (11/17/17 21:25) Ct Abd/Pel W Iv Contrast(Rout) (11/17/17 21:25) Iv Access Insert/Monitor (11/17/17 21:25) Ecg Monitoring (11/17/17 21:25) Oximetry (11/17/17 21:25) Ondansetron Inj (Zofran Inj) (11/17/17 21:30) Sodium Chlor 0.9% 1000 Ml Inj (Ns 1000 M (11/17/17 21:25) Sodium Chloride 0.9% Flush (Ns Flush) (11/17/17 21:30) Hydromorphone Pf Inj (Dilaudid Pf Inj) (11/17/17 21:30) Potassium Chloride (Kcl) (11/17/17 22:45) Iohexol 350 Inj (Omnipaque 350 Inj) (11/17/17 17:58) Diphenhydramine Inj (Benadryl Inj) (11/17/17 23:15) Potassium Chloride Powder (Kcl Powder) (11/17/17 23:30) Labs Laboratory Tests Test 11/17/17 21:44 White Blood Count 8.0 TH/MM3 Red Blood Count 5.21 MIL/MM3 Hemoglobin 10.5 GM/DL Hematocrit 33.3 % Mean Corpuscular Volume 63.9 FL Mean Corpuscular Hemoglobin 20.2 PG Mean Corpuscular Hemoglobin Concent 31.6 % Red Cell Distribution Width 19.2 % Platelet Count 340 TH/MM3 Mean Platelet Volume 9.4 FL Neutrophils (%) (Auto) 82.7 % Lymphocytes (%) (Auto) 10.7 % Monocytes (%) (Auto) 6.1 % Eosinophils (%) (Auto) 0.1 % Basophils (%) (Auto) 0.4 % Neutrophils # (Auto) 6.6 TH/MM3 Lymphocytes # (Auto) 0.9 TH/MM3 Monocytes # (Auto) 0.5 TH/MM3 Eosinophils # (Auto) 0.0 TH/MM3 Basophils # (Auto) 0.0 TH/MM3 CBC Comment DIFF FINAL Differential Comment Prothrombin Time 11.4 SEC Prothromb Time International Ratio 1.1 RATIO Activated Partial Thromboplast Time 22.9 SEC Blood Urea Nitrogen 12 MG/DL Creatinine 0.91 MG/DL Random Glucose 113 MG/DL Total Protein 7.9 GM/DL Albumin 4.2 GM/DL Calcium Level 9.4 MG/DL Alkaline Phosphatase 51 U/L Aspartate Amino Transf (AST/SGOT) 68 U/L Alanine Aminotransferase (ALT/SGPT) 59 U/L Total Bilirubin 0.5 MG/DL Sodium Level 140 MEQ/L Potassium Level 2.9 MEQ/L Chloride Level 104 MEQ/L Carbon Dioxide Level 24.2 MEQ/L Anion Gap 12 MEQ/L Estimat Glomerular Filtration Rate 86 ML/MIN Lipase 88 U/L Human Chorionic Gonadotropin, Quant LESS THAN 1 MIU/ML MDM Medical Decision Making Medical Screen Exam Complete: Yes Emergency Medical Condition: Yes Differential Diagnosis Dysmenorrhea, endometriosis, colitis, diverticulitis, appendicitis, UTI, cystitis, , ectopic Narrative Course Vital signs reviewed. CBC: WBC 8, hemoglobin 10.5, hematocrit 33.3, platelets 340. CMP is remarkable for potassium 2.9, AST 60, ALT 59, otherwise unremarkable. Lipase is 88. Beta-hCG is negative. CT abdomen pelvis: CONCLUSION: 1. No acute abnormality demonstrated. Endometrial thickening and a left ovarian cyst are unchanged. 2. Liver is slightly fatty infiltrated. Patient was given 1 mg of IV Dilaudid with complete resolution of pain. On reassessment she is resting comfortably. After return from CT scan she did have some right periorbital edema that resolved with Benadryl. No tongue or lip swelling. No drooling or stridor. Potassium replaced orally. Patient was made aware of all findings and is stable for discharge home with outpatient follow-up. She was advised to follow-up with an [facility] physician this week. She was informed on when to return to the emergency department patient verbalizes understanding and agreement with plan. Diagnosis Primary Impression: Dysmenorrhea Additional Impressions: Left ovarian cyst Fatty liver Hypokalemia Referrals: [facility] 3 days Additional Instructions: Follow-up with an [facility] physician this week. Return to the emergency department for worsening symptoms or any other concerns. Scripts No Active Prescriptions or Reported Meds Disposition: 01 DISCHARGE HOME Condition: Stable Júnior Quintero MD Nov 17, 2017 21:29
[2017-11-17] MEDS ORDERED: SODIUM CHLORIDE 0.9% FLUSH 10 ML FLUSH IV FLUSH PRN (21:30)
[2017-11-17] MEDS ORDERED: HYDROmorphone HCL PF 2 MG/ML VIAL IV PUSH ONE (21:30)
[2017-11-17] MEDS ORDERED: ONDANSETRON HCL 4 MG/2 ML VIAL IVP ONE (21:30)
[2017-11-17 22:11] LABS: AUTOMATED NEUTROPHIL # 6.6 TH/MM3 (1.8-7.7); BASOPHIL % 0.4 % (0.0-2.0); EOSINOPHIL % 0.1 % (0.0-4.0); HEMATOCRIT 33.3 % (35.0-46.0); HEMOGLOBIN 10.5 GM/DL (11.6-15.3); LYMPH % 10.7 % (9.0-44.0); LYMPHOCYTE # 0.9 TH/MM3 (1.0-4.8); MEAN CELL VOLUME 63.9 FL (80.0-100.0); MEAN CORPUSCULAR HEMOGLOBIN 20.2 PG (27.0-34.0); MEAN CORPUSCULAR HGB CONC 31.6 % (32.0-36.0); MEAN PLATELET VOLUME 9.4 FL (7.0-11.0); MONO % 6.1 % (0.0-8.0); MONOCYTE # 0.5 TH/MM3 (0-0.9); NEUT % 82.7 % (16.0-70.0); PLATELET COUNT 340 TH/MM3 (150-450); RED BLOOD COUNT 5.21 MIL/MM3 (4.00-5.30); RED CELL DISTRIBUTION WIDTH 19.2 % (11.6-17.2)
[2017-11-17 22:26] LABS: INTERNATIONAL NORMALIZED RATIO 1.1 RATIO; PROTHROMBIN TIME - PATIENT 11.4 SEC (9.8-11.6)
[2017-11-17 22:28] LABS: ALBUMIN 4.2 GM/DL (3.4-5.0); ALT (GPT) 59 U/L (10-53); AST (GOT) 68 U/L (15-37); BICARBONATE 24.2 MEQ/L (21.0-32.0); BLOOD UREA NITROGEN 12 MG/DL (7-18); CALCIUM 9.4 MG/DL (8.5-10.1); CHLORIDE 104 MEQ/L (98-107); CREATININE 0.91 MG/DL (0.50-1.00); GLOMERULAR FILTRATION RATE 86 ML/MIN (>89); GLUCOSE,RANDOM 113 MG/DL (74-106); SODIUM (NA) 140 MEQ/L (136-145)
[2017-11-17 22:38] LABS: ALKALINE PHOSPHATASE 51 U/L (45-117); TOTAL BILIRUBIN ADULT 0.5 MG/DL (0.2-1.0); TOTAL PROTEIN 7.9 GM/DL (6.4-8.2)
[2017-11-17] MEDS: POTASSIUM CHLORIDE 20 MEQ CONTROLLED RELEASE TAB PO ONE ×2 (22:45→23:16)
[2017-11-17] MEDS ORDERED: diphenhydrAMINE HCL 50 MG/ML VIAL IV PUSH ONE (23:15)
[2017-11-17] MEDS ORDERED: POTASSIUM CHLORIDE 20 MEQ PWD PACKET PO ONE (23:30)
--- NOTE | 2017-11-17 23:39 | RADRPT ---
EXAM DATE/TIME: 11/17/2017 22:52 [place] COMPARISON: CT ABDOMEN & PELVIS W CONTRAST, May 13, 2017, 8:47. CT ABDOMEN & PELVIS W CONTRAST, February 19 7, 13:04. INDICATIONS : Patient complains of abdominal pains on menstrual cycle. IV CONTRAST: 70 cc Omnipaque 350 (iohexol) IV ORAL CONTRAST: No oral contrast ingested. RADIATION DOSE: 4.87 CTDIvol (mGy) MEDICAL HISTORY : None SURGICAL HISTORY : ovarian cyst removed ENCOUNTER: Initial ACUITY: 1 day PAIN SCALE: 6/10 LOCATION: lower quadrant abdomen TECHNIQUE: Volumetric scanning of the abdomen and pelvis was performed. Using automated exposure control and ad justment of the mA and/or kV according to patient size, radiation dose was kept as low as reasonably achievable to obtain optimal diagnostic quality images. DICOM format image data is available electro nically for review and comparison. FINDINGS: LOWER LUNGS: The visualized lower lungs are clear. LIVER: Homogeneous mild fatty density without lesion. There is no dilation of the biliary tree. No calcifi ed gallstones. SPLEEN: Normal size without lesion. PANCREAS: Within normal limits. KIDNEYS: Normal in size and shape. There is no mass, stone or hydronephrosis. ADRENAL GLANDS: Within normal limits. VASCULAR: There is no aortic aneurysm. BOWEL/MESENTERY: The stomach, small bowel, and colon demonstrate no acute abnormality. There is no free intraperitone al air or fluid. Appendix well visualized, normal. ABDOMINAL WALL: Within normal limits. RETROPERITONEUM: There is no lymphadenopathy. BLADDER: No wall thickening or mass. REPRODUCTIVE: Endometrial thickening again noted, similar to prior studies. There is a 4.6 cm benign appearing left ovarian cyst that also is not significantly changed. INGUINAL: There is no lymphadenopathy or hernia. MUSCULOSKELETAL: Within normal limits for patient age. CONCLUSION: 1. No acute abnormality demonstrated. Endometrial thickening and a left ovarian cyst are unchanged. 2. Liver is slightly fatty infiltrated. Seth Murdock MD on November 17, 2017 at 23:36 Board Certified Radiologist. This report was verified electronically.
== END 2017-11-17 23:57 | disposition home or self-care (01) ==
LOC: NEPD 17:57
DX: N94.6 Dysmenorrhea, unspecified (principal); N83.202 Unspecified ovarian cyst, left side; K76.0 Fatty (change of) liver, not elsewhere classified; E87.6 Hypokalemia; R11.2 Nausea with vomiting, unspecified
CPT/HCPCS: 74177; 80053; 83690; 84702; 85025; 85610; 85730; 96361; 96374; 96375; 99284; J1170; J1200; J2405; J7030; Q9967

== ENCOUNTER 2017-11-18 17:01 | Emergency (ER) | payer OTHER ==
[~2017-11-18] VITALS: Ht 157.5 cm; Wt 55.9 kg
[2017-11-18 17:44] VITALS: BP 121/72; PULSE 68; RESP 20; TEMP 98.7; O2SAT 100
--- NOTE | 2017-11-18 20:03 | PD ---
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 She is writhing all over the stretcher and up and down with the pain. This pain seems out of proportion to her complain which is "I am here for my cyst in the ovary". Patient proceeds to tell me that she is in the emergency room multiple times every month for this pain and she is well-known to everybody in the department. Her primary care is Dr. Zarate who has not found a FIRE SUPPORT MAN for her yet as per her. So apparently that leaves her to come to the emergency room each time. Vital signs are stable. Patient is being on the stretcher and the ariza because of the pain. Upon looking back patient was here yesterday with the same complaint. She had a CAT scan of her abdomen and pelvis along with blood test done. CT scan showed a stable ovarian cyst in her left ovary as per the radiologist. This seems to be a chronic complaint at this point. [facility] Past Medical History Narrative Medical List of her past medical, surgical, social and family history is reviewed from the nursing note. Anemia: Yes Diminished Hearing: No Genitourinary: Yes Immunizations Current: Yes ?: Not LMP: ended yesterday : 3 Para: 3 Ectopic : No Ovarian Cysts: Yes (removed) Tubal Ligation: Yes Past Surgical History Section: Yes (x3) Gynecologic Surgery: Yes (CYST REMOVAL, ) Hysterectomy: No Social History Alcohol Use: Yes (ocassionally) Tobacco Use: No Substance Use: No (pt denies ) Allergies-Medications (Allergen,Severity, Reaction): Coded Allergies: crab (Verified Allergy, Severe, hives, 11/19/17) Iodinated Contrast- Oral and IV Dye (Verified Allergy, Intermediate, Edema , 11/19/17) EDEMA TO EYES Comments List of her allergies reviewed from the nursing note. Reported Meds & Prescriptions Reported Meds & Active Scripts Active No Active Prescriptions or Reported Medications Narrative Medication List of her home medications reviewed from the nursing note. Review of Systems Except as stated in HPI: all other systems reviewed are Neg Genitourinary: Positive: Pelvic Pain Physical Exam Narrative GENERAL: Awake, alert, extremely anxious and in distress SKIN: Focused skin assessment warm/dry. HEAD: Atraumatic. Normocephalic. EYES: Pupils equal and round. No scleral icterus. No injection or drainage. ENT: No nasal bleeding or discharge. Mucous membranes pink and moist. NECK: Trachea midline. No JVD. CARDIOVASCULAR: Regular rate and rhythm. No murmur appreciated. RESPIRATORY: No accessory muscle use. Clear to auscultation. Breath sounds equal bilaterally. GASTROINTESTINAL: Abdomen soft, non-tender, nondistended. Hepatic and splenic margins not palpable. MUSCULOSKELETAL: No obvious deformities. No clubbing. No cyanosis. No edema. NEUROLOGICAL: Awake and alert. No obvious cranial nerve deficits. Motor grossly within normal limits. Normal speech. PSYCHIATRIC: Appropriate mood and affect; insight and judgment normal. Data Data Last Documented VS Vital Signs Date Time Temp Pulse Resp B/P (MAP) Pulse Ox O2 Delivery O2 Flow Rate FiO2 11/18/17 17:44 98.7 68 20 121/72 (88) 100 Orders Orders Ketorolac Inj (Toradol Inj) (11/18/17 20:15) Ed Discharge Order (11/18/17 20:29) [facility] Medical Decision Making Medical Screen Exam Complete: Yes Emergency Medical Condition: Yes Medical Record Reviewed: Yes Differential Diagnosis Chronic pelvic pain, history of ovarian cyst Narrative Course 8:16 PM patient continues to the moaning and groaning loudly in pain. However interestingly every visit in the past at least 20 times her presentation has been exactly the same. The ovarian cyst is unchanged in every CAT scan as per the radiologist. Patient has had UTIs in the past but last UA grew mixed tiesha. Patient asked me for pain medication. I am giving her IM Toradol. In my opinion this is a chronic pelvic pain and patient needs to see her primary care who needs to either send her to a FIRE SUPPORT MAN specialist or a painting department supervisor at this point. Patient has been overusing the ER for her chronic pain. There could be a secondary gain of pain medication seeking/dependence. Procedures EKG Prior to Arrival: No Diagnosis Primary Impression: Acute on chronic pelvic pain Additional Impression: Pelvic pain in female Referrals: Primary Care Physician 2 days Additional Instructions: Please follow-up with your primary care and have him refer you to a gas meter installer helper or a painting department supervisor for your chronic pain control. You should not be using emergency room for chronic pain management. Scripts No Active Prescriptions or Reported Meds Disposition: 01 DISCHARGE HOME Condition: Jessica Nair MD Nov 18, 2017 20:03
[2017-11-18] MEDS ORDERED: KETOROLAC TROMETHAMINE 60 MG/2 ML (IM) VIAL IM ONE (20:15)
== END 2017-11-18 20:47 | disposition home or self-care (01) ==
LOC: NEPD 17:01
DX: R10.2 Pelvic and perineal pain (principal); G89.29 Other chronic pain
CPT/HCPCS: 96372; 99283; J1885

== ENCOUNTER 2017-11-19 14:16 | Emergency (ER) | payer OTHER ==
[~2017-11-19] VITALS: Ht 157.5 cm; Wt 56.0 kg
[2017-11-19 14:29] VITALS: BP 104/68; PULSE 73; RESP 17; TEMP 98.4; O2SAT 100
--- NOTE | 2017-11-19 15:05 | PD ---
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 Says she has been seen here every day for the past 4 days. She says she comes here every month during her periods because they are painful. Reports history of ovarian cyst. Denies dysuria, abnormal vaginal discharge, odor. Says her menses stopped yesterday, but the pain did not. Denies fevers. Rates pain 10/10. Describes it as cramping. Has tried taking ibuprofen and naproxen for symptom management. No known relieving factors. Pain is typically relieved after her period stops. Pain is aggravated with onset of menses. Has not followed up with her office technician. Her primary care provider is Dr. Zarate. Allergies to crabs and iodine. Denies other significant past medical history. PFSH Past Medical History Anemia: Yes Diminished Hearing: No Genitourinary: Yes Immunizations Current: Yes Tetanus Vaccination: Unknown ?: Not : 3 Para: 3 Ectopic : No Ovarian Cysts: Yes (removed) Tubal Ligation: Yes Past Surgical History Section: Yes (x3) Gynecologic Surgery: Yes (CYST REMOVAL, ) Hysterectomy: No Social History Alcohol Use: Yes (ocassionally) Tobacco Use: No Substance Use: No (pt denies ) Allergies-Medications (Allergen,Severity, Reaction): Coded Allergies: crab (Verified Allergy, Severe, hives, 11/19/17) Iodinated Contrast- Oral and IV Dye (Verified Allergy, Intermediate, Edema , 11/19/17) EDEMA TO EYES Reported Meds & Prescriptions Reported Meds & Active Scripts Active No Active Prescriptions or Reported Medications Review of Systems Except as stated in HPI: all other systems reviewed are Neg Physical Exam Narrative GENERAL: Well-nourished, well-developed patient, in no acute distress; afebrile , nontoxic-appearing SKIN: Warm and dry. HEAD: Atraumatic. Normocephalic. EYES: Pupils equal and round. No scleral icterus. No injection or drainage. ENT: Mucosa pink and moist. Airway patent. NECK: Trachea midline. CARDIOVASCULAR: Regular rate. RESPIRATORY: No accessory muscle use. GASTROINTESTINAL: Abdomen soft, tenderness to mid pelvic region, nondistended. Nonrigid. No guarding. BACK: No CVA tenderness. MUSCULOSKELETAL: No obvious deformities. No clubbing. No cyanosis. No edema. NEUROLOGICAL: Awake and alert. Oriented 3. No obvious cranial nerve deficits. Motor grossly within normal limits. Normal speech. PSYCHIATRIC: Appropriate mood and affect; insight and judgment normal. Data Data Last Documented VS Vital Signs Date Time Temp Pulse Resp B/P (MAP) Pulse Ox O2 Delivery O2 Flow Rate FiO2 11/19/17 14:29 98.4 73 17 104/68 (80) 100 Orders Orders Ketorolac Inj (Toradol Inj) (11/19/17 15:15) Ed Discharge Order (11/19/17 15:03) [facility] Medical Decision Making Medical Screen Exam Complete: Yes Emergency Medical Condition: Yes Medical Record Reviewed: Yes Differential Diagnosis Menorrhagia, dysmenorrhea, chronic pelvic pain Narrative Course 32-year-old female presents back to the emergency department complaining of continued pelvic pain. She says she gets this pain every month with her menses. Her menses stopped yesterday and and the pain did not. I reviewed the medical record and the patient has been seen here November 13, 2 times on November 14 , November 17, November 18, and again today. On November 17 the patient had CBC which shows signs of anemia but otherwise was unremarkable. Her potassium is 2.9 and replaced with 80 mEQ of potassium chloride, otherwise her CMP was unremarkable. Her beta hCG was less than 1. Her urinalysis showed sinus of infection on November 13 and she was given ciprofloxacin. I reviewed the urine culture and it grew out probable contaminants. She had an abdominal/pelvis CT on November 17 which was unremarkable and showed left ovarian cyst that was unchanged. I instructed the patient she needs to follow-up with gynecology. Her primary care provider is Dr. Zarate. She does not have a office technician and has not followed up for this problem. With the extensive workup on November 17 and presenting with the same complaint, I feel that there is no need for repeat labs or imaging. Toradol administered in the ER. Instructed patient to follow- up with gynecology. Instructed patient to follow up with primary care provider. Patient verbalizes understanding and agreement with treatment plan. Patient is medically cleared and stable for discharge. Discussed reasons to return to the emergency department. Patient agrees with treatment plan. The patients vital signs are stable and the patient is stable for outpatient follow- up and treatment. Patient discharged home, stable and in no acute distress. Diagnosis Primary Impression: Dysmenorrhea Referrals: [facility] Employee Counselor Primary Care Physician Patient Instructions: Dysmenorrhea (ED), General Instructions Additional Instructions: Follow-up with gynecology Med/Other Pt SpecificInfo: No Change to Meds, No Meds Exist/No RX given Scripts No Active Prescriptions or Reported Meds Disposition: 01 DISCHARGE HOME Condition: Stable Candie Barnes Nov 19, 2017 15:05
[2017-11-19] MEDS ORDERED: KETOROLAC TROMETHAMINE 60 MG/2 ML (IM) VIAL IM ONE (15:15)
== END 2017-11-19 15:36 | disposition home or self-care (01) ==
LOC: NEPD 14:16
DX: N94.6 Dysmenorrhea, unspecified (principal)
CPT/HCPCS: 96372; 99283; J1885